=== PATIENT | female | born 2000 | race Caucasian/White ===

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

== ENCOUNTER 2021-04-27 12:44 | Emergency (ER) | payer BC, SELFPAY ==
[2021-04-27 12:50] VITALS: BP 132/72; PULSE 89; RESP 20; TEMP 36.7; O2SAT 99; BMI 18.2
[2021-04-27 13:29] LABS: UTC Strep Screen (Rapid) Negative (Negative)
--- NOTE | 2021-04-27 14:09 | HMH.EDUTC ---
[facility] [place] Disposition Clinical Impression: Viral syndrome, Bronchitis Pharyngitis Qualifiers: Pharyngitis/tonsillitis etiology: unspecified etiology Qualified Code(s): J02.9 - Acute pharyngitis, unspecified Disposition: Home, Self-Care Condition on Discharge: Good Instructions: DI for Strep Throat, DI for Acute Bronchitis, DI for COVID-19 (Suspected or Confirmed ), Preventing the Spread of Coronavirus Discharge Instructions Additional Instructions: Drink plenty of fluids. Take tylenol or ibuprofen for pain or fever. Take the medications as directed. Follow up with your regular doctor. GO TO THE ER FOR ANY WORSENING SYMPTOMS Quarantine until you know the results of your covid-19 test. If it is positive, the health department should call you and give you further instructions about your length of Quarantine and other things. Notify your school or workplace of your results and follow their instructions regarding return to work/school. The cough medication (Bromfed dm) may make you drowsy, so don't drive or operate heavy machinery after taking it. Prescriptions: Brompheniramine/Pseudoephed/Dm [Bromfed Dm Cough Syrup] 5 ml PO Q6HP PRN #240 ml PRN Reason: Cough Transmission Status: Received by [facility] Promethazine HCl 12.5 mg PO Q6HP PRN #20 tab PRN Reason: Nausea Transmission Status: Received by [facility] predniSONE [Deltasone 10mg tablet] 10 mg PO BID 3 Days #6 tab Transmission Status: Received by [facility] Azithromycin [Z-Fernando 250mg Tab*] 250 mg PO UD DOSE PK #6 tab Transmission Status: Received by [facility] Referrals: Nell Gomez APRN [Primary Care Provider] - Forms: Work/School Release Time of Disposition: 14:21 Medical Decision Making - Medical Records Medical records reviewed: No: I reviewed the patient's medical records. - Aquilino Inquiry Pt receiving controlled substance: No Vital Signs: 04/27/21 12:50 04/27/21 14:20 Temperature 98.1 F 98.1 F Temperature Source Oral Pulse Rate 89 Pulse Rate [Right Brachial] 89 Respiratory Rate 20 20 Blood Pressure 132/72 Blood Pressure [Right Arm] 132/72 Blood Pressure Mean [Right Arm] 92 Blood Pressure Source [Right Arm] Automatic Cuff Blood Pressure Position [Right Arm] Sitting 02 Sat by Pulse Oximetry 99 Oxygen Delivery Method Room Air - Lab Data Lab results reviewed: Yes: I reviewed the patient's lab results. Lab Results 04/27/21 12:59: Chlamy pneumoniae PCR Not detected, Adenovirus (PCR) Not detected, B. pertussis DNA (PCR) Not detected, Coronavirus OC43 (PCR) Not detected, Coronavirus HKU1 (PCR) Not detected, Coronavirus 229E (PCR) Not detected, SARS-CoV-2 (PCR) Not detected, Coronavirus NL63 (PCR) Not detected, Human Metapneumovir PCR Not detected, Influenza A (H1) PCR Not detected, Influ A (H1N1/09) PCR Not detected, Influenza A (H3) PCR Not detected, Influenza Type A (PCR) Not detected, Influenza Type B (PCR) Not detected, M. pneumoniae (PCR) Not detected, Parainfluenza 1 (PCR) Not detected, Parainfluenza 2 (PCR) Not detected, Parainfluenza 3 (PCR) Not detected, Parainfluenza 4 (PCR) Not detected, RSV (PCR) Not detected, Entero/Rhino (PCR) Detected A 04/27/21 13:18: Strep Scn Rapid Clinic Negative Orders (Tests/Meds): ORDERS Category Date Time Status Strep Screen Confirmation Stat Micro 04/27/21 13:18 Received [facility] [place] HPI - General Stated complaint: covid and strep test w/ symptoms Time Seen by Provider: 04/27/21 14:09 Mode of Arrival: Ambulatory Source of Information: Patient Limitations: No Limitations Description of Symptoms (Recalled from Triage Doc. by RN): PATIENT C/O RUNNY NOSE, NAUSEA, COUGH, SORE THROAT, CHILLS, AND EARS POPPING SINCE FRIDAY HEENT Symptoms (Recalled from RN notes): Yes Resp Symptoms (Recalled from RN notes): No Skin Symptoms (Recalled from RN notes): No MS Symptoms (Recalled from RN notes): No Functional Status (Recall
[2021-04-27 14:20] VITALS: BP 132/72; PULSE 89; RESP 20; TEMP 36.7; O2SAT 99
[2021-04-27 14:34] LABS: Adenovirus,PCR Not Detected (NotDetected); Bordetella Pertussis Not Detected (NotDetected); Chlamydophila Pneumoniae, PCR Not Detected (NotDetected); Coronavirus 19, PCR Not Detected (NotDetected); Coronavirus 229E Not Detected (NotDetected); Coronavirus NL63 Not Detected (NotDetected); Coronavirus OC43 Not Detected (NotDetected); Coronovirus HKU1,PCR Not Detected (NotDetected); Human Metapneumovirus Not Detected (NotDetected); Influenza A, PCR Not Detected (NotDetected); Influenza AH1, 2009 Not Detected (NotDetected); Influenza AH1, PCR Not Detected (NotDetected); Influenza AH3,PCR Not Detected (NotDetected); Influenza B, PCR Not Detected (NotDetected); Mycoplasma Pneumoniae, PCR Not Detected (NotDetected); Parainfluenza 1, PCR Not Detected (NotDetected); Parainfluenza 2, PCR Not Detected (NotDetected); Parainfluenza 3, PCR Not Detected (NotDetected); Parainfluenza 4, PCR Not Detected (NotDetected); Respiratory Syncytial Virus Not Detected (NotDetected)
[2021-04-27 15:56] LABS: Rhinovirus/Enterovirus Detected (NotDetected)
== END 2021-04-27 14:26 | disposition home or self-care (01) ==
PROVIDERS: Emergency Provider Nurse Practitioner Family; PCP Nurse Practitioner
DX: J02.9 Acute pharyngitis, unspecified (principal); Z20.822 Contact with and (suspected) exposure to COVID-19
CPT/HCPCS: 87581; 87632; 87798; 87880; 99203; C9803; G0463; U0003; U0005

== ENCOUNTER 2021-05-10 17:44 | Emergency (ER) | payer BC, SELFPAY ==
[2021-05-10 17:45] VITALS: BP 119/78; PULSE 73; RESP 16; TEMP 37; O2SAT 98; BMI 18.2
--- NOTE | 2021-05-10 17:52 | HMH.EDGENADL ---
ED Disposition Clinical Impression: Superior mesenteric artery syndrome Disposition: Home, Self-Care Condition on Discharge: Fair Instructions: DI for Acute Abdominal Pain Additional Instructions: You should try to gain some weight back, that is the initial recommended treatment for superior mesenteric artery syndrome. See your physician as soon as possible for further evaluation. Return immediately if worsening abdominal pain, abdominal distention, vomiting, unable to hold down liquids or solids, or development of any other new symptoms such as shortness of breath, fever, vomiting of blood. Referrals: Nell Gomez APRN [Primary Care Provider] - Forms: Work/School Release - Critical Care Critical Care Time: No Attestation: On 05/10/21, the high probability of a clinically significant, sudden or life threatening deterioration of the following system(s) required my full and direct attention, intervention and personal management. The time I documented below is in addition to time spent performing reported procedures but includes the following listed in this critical care notation. Medical Decision Making - Aquilino Inquiry Pt receiving controlled substance: Yes Aquilino was queried for this patient: Yes Risks and benefits of using a controlled substance: were not discussed with pt by me Vital Signs: 05/10/21 17:45 Temperature 98.6 F Temperature Source Oral Pulse Rate [Right] 73 Respiratory Rate 16 Blood Pressure [Right Arm] 119/78 Blood Pressure Mean [Right Arm] 91 Blood Pressure Source [Right Arm] Automatic Cuff Blood Pressure Position [Right Arm] Sitting 02 Sat by Pulse Oximetry 98 Oxygen Delivery Method Room Air - Lab Data Lab Results 05/10/21 17:55: WBC 8.0, RBC 4.67, Hgb 13.5, Hct 40.6, MCV 87.1, MCH 29.0, MCHC 33.3, RDW 12.9, Plt Count 337, MPV 9.0, Neut % (Auto) 59.5, Lymph % (Auto) 32.1, Andrews % (Auto) 4.6, Eos % (Auto) 3.0, Baso % (Auto) 0.9, Neut # (Auto) 4.8, Lymph # (Auto) 2.6, Andrews # (Auto) 0.4, Eos # (Auto) 0.2, Baso # (Auto) 0.1 05/10/21 17:55: Sodium 142, Potassium 4.2, Chloride 108 H, Carbon Dioxide 25, Anion Gap 13.2, BUN 13, Creatinine 0.70, Estimated Creat Clear 111, Estimated GFR 108, Est GFR ( Amer) 130, Glucose 98, Calcium 9.7, Total Bilirubin 0.3, AST 25, ALT 17, Alkaline Phosphatase 60, Total Protein 7.7, Albumin 4.9, Globulin 2.8, Albumin/Globulin Ratio 1.8, Lipase 216 05/10/21 17:55: Serum HCG, Qual Negative Result diagrams: 05/10/21 17:55 05/10/21 17:55 Orders (Tests/Meds): ED MEDICATIONS Discontinued Medications Generic Name Dose Route Start Last Admin Trade Name Freq PRN Reason Stop Dose Admin Iopamidol 75 ml 05/10/21 18:45 05/10/21 18:46 Iopamidol-370 (76%);100ml Bottle IV 05/10/21 18:46 75 ml ONCE ONE Administration Morphine Sulfate 4 mg 05/10/21 18:01 05/10/21 18:12 Morphine 4mg/Ml Syringe IV 05/10/21 18:02 4 mg ONCE ONE Administration Morphine Sulfate 4 mg 05/10/21 20:11 05/10/21 20:13 Morphine 4mg/Ml Syringe IV 05/10/21 20:12 4 mg ONCE ONE Administration Ondansetron HCl 4 mg 05/10/21 18:01 05/10/21 18:12 Ondansetron 4mg/2ml Vial IV 05/10/21 18:02 4 mg ONCE ONE Administration Sodium Chloride 1,000 ml 05/10/21 18:01 05/10/21 18:12 Sodium Chloride 0.9% 1000ml Bag IV 05/10/21 18:02 1,000 ml BOLUS ONE Administration ORDERS Category Date Time Status Urinalysis and Microscopic Stat Lab 05/10/21 18:00 Ordered - CT Data CT Scan: Abdomen, Pelvis Time Received: 20:[address] Reviewed: Yes: I have viewed the radiologist's interpretation - Physician Consults Physician Consulted: Mohan Time: 20:05 Reason -: Surgical Eval/Care Comment/Response: Recommends consultation with vascular surgeon. Likely treatment will be regaining weight. Does not feel patient needs any acute treatment from a general surgery perspective. Additional Consult: [facility] transfer physician Time:
--- NOTE | 2021-05-10 18:00 | CT_ITS ---
PROCEDURE INFORMATION: Exam: CT Abdomen And Pelvis With Contrast Exam date and time: 05/10/2021 6:00 PM Age: 20 years old Clinical indication: Nausea and other: Abd pain; Additional info: Abdominal pain TECHNIQUE: Imaging protocol: Computed tomography of the abdomen and pelvis with contrast. Radiation optimization: All CT scans at this facility use at least one of these dose optimization techniques: automated exposure control; mA and/or kV adjustment per patient size (includes targeted exams where dose is matched to clinical indication); or iterative reconstruction. Contrast material: ISOVUE; Contrast volume: 75 ml; Contrast route: IV; COMPARISON: CR XR LUMBAR SPINE 2-3V 11/03/2020 9:55 AM FINDINGS: Liver: Normal. No mass. Gallbladder and bile ducts: Normal. No calcified stones. No ductal dilation. Pancreas: Normal. No ductal dilation. Spleen: Normal. No splenomegaly. Adrenal glands: Normal. No mass. Kidneys and ureters: Normal. No hydronephrosis. Stomach and bowel: Mildly dilated stomach and proximal duodenum with tapering seen in the 3rd portion of the duodenum. Aortomesenteric angle is approximately 22 degrees and the aortomesenteric distance is 6 mm. No mucosal thickening. Appendix: No evidence of appendicitis. Intraperitoneal space: Unremarkable. No free air. No significant fluid collection. Vasculature: Unremarkable. No abdominal aortic aneurysm. Lymph nodes: Unremarkable. No enlarged lymph nodes. Urinary bladder: Unremarkable as visualized. Reproductive: Unremarkable as visualized. Bones/joints: Unremarkable. No acute fracture. Soft tissues: Unremarkable. 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
[2021-05-10 18:10] LABS: Basophils # 0.1 K/mm3 (0-0.2); Basophils % 0.9 % (0.1-2.0); Eosinophils # 0.2 K/mm3 (0.0-0.4); Hematocrit 40.6 % (37.0-47.0); Hemoglobin 13.5 g/dL (12.2-16.2); Lymphocytes # 2.6 K/mm3 (0.7-4.5); Lymphocytes % 32.1 % (10-50); Mean Corpuscular HGB Conc 33.3 g/dL (31.8-35.4); Mean Corpuscular Volume 87.1 fl (81-99); Monocytes # 0.4 K/mm3 (0.1-1.0); Monocytes % 4.6 % (1.7-9.3); Neutrophils # 4.8 K/mm3 (1.8-7.8); Neutrophils % 59.5 % (37.0-80.0); Platelet Count 337 K/mm3 (142-424); Red Blood Count 4.67 M/mm3 (4.20-5.40); Red Cell Distribution Width 12.9 % (11.5-17.5)
[2021-05-10 18:12] LABS: Chloride 108 mmol/L (98-107); Potassium 4.2 mmoL/L (3.5-5.1); Sodium 142 mmol/L (136-145)
[2021-05-10 18:15] LABS: Alanine Aminotransferase 17 U/L (12-78); Albumin Level 4.9 g/dl (3.5-5.0); Albumin/Globulin Ratio 1.8 (1.1-1.8); Alkaline Phosphatase 60 U/L (38-126); Anion Gap 13.2 mEq/L (5-15); Aspartate Amino Transferase 25 U/L (14-36); Bilirubin,Total 0.3 mg/dl (0.2-1.3); Blood Urea Nitrogen 13 mg/dl (7-17); Calcium 9.7 mg/dl (8.4-10.2); Carbon Dioxide 25 mmol/L (22.0-30.0); Creatinine Clearance Estimated 111 mL/min (50-200); Estimated Glomerular Filt Rate 108 ml/min (>60); GFR (African American) 130 ML/MIN (>60); Globulin 2.8 g/dL (1.3-3.2); Glucose 98 mg/dl (74-100); Lipase 216 U/L (23-300); Total Protein,Serum 7.7 g/dl (6.3-8.2)
[2021-05-10 18:27] LABS: HCG Qualitative, Serum Negative (Negative)
--- NOTE | 2021-05-10 18:32 | PC.NURSE ---
Spoke to pt to see if she could give me a UA, and she stated that she urinated before she came here. She is unable to urinate at this time. Will continue to monitor pt.
--- NOTE | 2021-05-10 18:33 | PC.NURSE ---
Pt is going to CT.
[2021-05-10 21:00] VITALS: BP 119/78; PULSE 73; RESP 16; TEMP 37
== END 2021-05-10 21:04 | disposition home or self-care (01) ==
PROVIDERS: Emergency Provider Emergency Medicine; PCP Nurse Practitioner
DX: K55.1 Chronic vascular disorders of intestine (principal); R10.12 Left upper quadrant pain
CPT/HCPCS: 74177; 80053; 83690; 84703; 85025; 99283; J2405; Q9967

== ENCOUNTER 2021-05-12 17:55 | Emergency (ER) | payer BC, SELFPAY ==
[2021-05-12] VITALS (9 sets, daily range): BP systolic 91–112; BP diastolic 41–62; PULSE 54–118; RESP 15–18; TEMP 36.9–37.1; O2SAT 98–100; BMI 17.9
--- NOTE | 2021-05-12 18:39 | PC.NURSE ---
pt states unable to urinate at this time
[2021-05-12 18:55] LABS: Basophils # 0.1 K/mm3 (0-0.2); Basophils % 0.8 % (0.1-2.0); Eosinophils # 0.3 K/mm3 (0.0-0.4); Eosinophils % 3.5 % (0.1-12.0); Lymphocytes # 2.1 K/mm3 (0.7-4.5); Lymphocytes % 28.1 % (10-50); Mean Corpuscular HGB Conc 32.4 g/dL (31.8-35.4); Mean Corpuscular Hemoglobin 29.2 pg (27.0-31.2); Mean Corpuscular Volume 90.2 fl (81-99); Mean Platelet Volume 9.4 fl (7.4-10.4); Monocytes # 0.3 K/mm3 (0.1-1.0); Monocytes % 3.8 % (1.7-9.3); Neutrophils # 4.7 K/mm3 (1.8-7.8); Neutrophils % 63.9 % (37.0-80.0); Platelet Count 246 K/mm3 (142-424); Red Cell Distribution Width 13.4 % (11.5-17.5); White Blood Count 7.3 K/mm3 (4.5-13.0)
[2021-05-12 19:00] LABS: Chloride 110 mmol/L (98-107); Sodium 143 mmol/L (136-145)
[2021-05-12 19:01] LABS: Potassium 3.9 mmoL/L (3.5-5.1)
[2021-05-12 19:03] LABS: Alanine Aminotransferase 14 U/L (12-78); Alkaline Phosphatase 50 U/L (38-126); Amylase 65 U/L (30-110); Anion Gap 11.9 mEq/L (5-15); Aspartate Amino Transferase 23 U/L (14-36); Bilirubin,Total 0.2 mg/dl (0.2-1.3); Blood Urea Nitrogen 10 mg/dl (7-17); Calcium 9.2 mg/dl (8.4-10.2); Carbon Dioxide 25 mmol/L (22.0-30.0); Creatinine Clearance Estimated 127 mL/min (50-200); Estimated Glomerular Filt Rate 129 ml/min (>60); GFR (African American) 156 ML/MIN (>60); Glucose 84 mg/dl (74-100)
[2021-05-12 19:04] LABS: Albumin/Globulin Ratio 1.7 (1.1-1.8); Globulin 2.4 g/dL (1.3-3.2); Lipase 109 U/L (23-300); Total Protein,Serum 6.4 g/dl (6.3-8.2)
[2021-05-12 19:10] LABS: C-Reactive Protein < 0.3 mg/L (0-4)
[2021-05-12 19:56] LABS: Erythrocyte Sedimentation Rate 14 mm/hr (0-20)
--- NOTE | 2021-05-12 19:56 | PC.NURSE ---
pt was able to urinate but did not collect a sample.
--- NOTE | 2021-05-12 20:14 | HMH.EDGENADL ---
ED Disposition Clinical Impression: Abdominal pain Qualifiers: Abdominal location: upper abdomen, unspecified Qualified Code(s): R10.10 - Upper abdominal pain, unspecified Disposition: Home, Self-Care Condition on Discharge: Fair Instructions: DI for Acute Abdominal Pain Additional Instructions: You have been evaluated for abdominal pain. 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 Please try to increase your caloric intake. Take medications as needed. It is very important that you follow-up with vascular surgery, you may eventually need to have surgery if you develop a bowel blockage or if your symptoms get worse. Return to the emergency department at once for any new or worsening abdominal pain, vomiting, other concerns. Referrals: Jenna Gomez PA [Primary Care Provider] - Forms: Work/School Release Time of Disposition: 22:58 - Critical Care Critical Care Time: No Attestation: On 05/12/21, the high probability of a clinically significant, sudden or life threatening deterioration of the following system(s) required my full and direct attention, intervention and personal management. The time I documented below is in addition to time spent performing reported procedures but includes the following listed in this critical care notation. Medical Decision Making - Medical Records Medical records reviewed: Yes: I reviewed the patient's medical records. - [place] Inquiry Pt receiving controlled substance: No Vital Signs: 05/12/21 18:11 05/12/21 18:30 05/12/21 19:00 Temperature 98.4 F Temperature Source Oral Pulse Rate 62 64 Pulse Rate [Left Radial] 118 H Respiratory Rate 18 15 Blood Pressure 98/62 L 98/42 L Blood Pressure [Right Arm] 112/55 L Blood Pressure Mean 60 63 Blood Pressure Mean [Right Arm] 74 Blood Pressure Source [Right Arm] Automatic Cuff Blood Pressure Position [Right Arm] Sitting 02 Sat by Pulse Oximetry 99 98 98 Oxygen Delivery Method Room Air 05/12/21 19:30 05/12/21 21:06 05/12/21 21:31 Temperature Temperature Source Pulse Rate 54 L 71 58 L Pulse Rate [Left Radial] Respiratory Rate Blood Pressure 92/41 L 96/58 L 99/62 L Blood Pressure [Right Arm] Blood Pressure Mean 53 70 73 Blood Pressure Mean [Right Arm] Blood Pressure Source [Right Arm] Blood Pressure Position [Right Arm] 02 Sat by Pulse Oximetry 98 100 99 Oxygen Delivery Method 05/12/21 22:00 05/12/21 22:30 05/12/21 23:20 Temperature 98.7 F Temperature Source Oral Pulse Rate 55 L 68 73 Pulse Rate [Left Radial] Respiratory Rate 16 Blood Pressure 94/56 L 91/52 L 99/62 L Blood Pressure [Right Arm] Blood Pressure Mean 66 65 Blood Pressure Mean [Right Arm] Blood Pressure Source [Right Arm] Blood Pressure Position [Right Arm] 02 Sat by Pulse Oximetry 98 100 Oxygen Delivery Method Room Air - Lab Data Lab Results 05/12/21 18:45: WBC 7.3, RBC 4.10 L, Hgb 12.0 L, Hct 37.0, MCV 90.2, MCH 29.2, MCHC 32.4, RDW 13.4, Plt Count 246 D, MPV 9.4, Neut % (Auto) 63.9, Lymph % (Auto) 28.1, [facility] % (Auto) 3.8, Eos % (Auto) 3.5, Baso % (Auto) 0.8, Neut # (Auto) 4.7, Lymph # (Auto) 2.1, [facility] # (Auto) 0.3, Eos # (Auto) 0.3, Baso # (Auto) 0.1 05/12/21 18:45: Sodium 143, Potassium 3.9, Chloride 110 H, Carbon Dioxide 25, Anion Gap 11.9, BUN 10, Creatinine 0.60, Estimated Creat Clear 127, Estimated GFR 129, Est GFR ( Amer) 156, Glucose 84, Calcium 9.2, Total Bilirubin 0.2, AST 23, ALT 14, Alkaline Phosphatase 50, C-Reactive Protein < 0.3, Total Protein 6.4, Albumin 4.0, Globulin 2.4, Albumin/Globulin Ratio 1.7, Amylase 65, Lipase 109 05/12/21 18:45: ESR 14 05/12/21 20:40: Lactate 0.9 Result diagrams: 05/12/21 18:45 05/12/21 18:45 Orders (Tests/Meds): ED MEDICATIONS Discontinued Medications Generic Name Dose Route Start Last Admin Trade Name Freq PRN Reason Stop Dose Admin Diphenhydramine HCl 12.5 mg 05/12/21 19:58 05/12/21 21:01 Diphenhydramine 50mg/Ml
--- NOTE | 2021-05-12 20:25 | PC.NURSE ---
pt continues to state she cannot void.
[2021-05-12 21:13] LABS: Lactic Acid 0.9 mmol/L (0.7-2.1)
--- NOTE | 2021-05-12 22:13 | PC.NURSE ---
Patient continues to be resting,laying in bed. no complaints offered.
--- NOTE | 2021-05-12 22:30 | PC.NURSE ---
pt resting at this time. no evidence of vomiting or abd discomfort noted. md aware. wants to try a PO challenge to ensure patient can keep solids and liquids down
--- NOTE | 2021-05-12 23:12 | PC.NURSE ---
patient requested nursing to update her mom on discharge plan, states ok to bring back to room. allowed mom in room with patient at this time. pt consumed most of her soda without incident and ate some crackers.
--- NOTE | 2021-05-12 23:25 | PC.NURSE ---
md called to bedside because the mom had been allowed to come back to be updated by md. the mom immediately berated the physician for her daughter having to present for a second time to the hospital with an ongoing disease process. md was extremely politely and the mother insisted on speaking louder to the point of yelling stating that i was in this hospital twice for covid and I wasn't even treated like a human here so i know how you are treating my daughter . Patient was very pleasant with staff, stated she felt so much better and that she was ready to go home. The mom interjected that we had no business giving her medications (we didn't give any sedating meds) that would cause her not to comprehend what we were telling her and she was informed that didn't happen. We simply were allowing the mom to come back to get the update at the daughter's request, but when the mother put her hand in the doctor's face, the doctor turned and walked away. supervisor lump room was notified and came down to Ed,however they left prior to this. Pt ambulated out of facility without incident, carrying her soda that she was given.
== END 2021-05-12 23:26 | disposition home or self-care (01) ==
PROVIDERS: Emergency Medicine; Emergency Provider Emergency Medicine; PCP Physician Assistant
DX: K55.1 Chronic vascular disorders of intestine (principal); R11.0 Nausea
CPT/HCPCS: 36415; 80053; 82150; 83605; 83690; 85025; 85651; 86140; 99282

== ENCOUNTER 2022-06-09 13:13 | Emergency (ER) | payer BC, SELFPAY ==
--- NOTE | 2022-06-09 15:00 | EXP.UTC ---
Discharge Plan Disposition Patient Disposition: Home, Self-Care Condition: Good Prescriptions Prescriptions: New phenazopyridine [Pyridium] 200 mg tablet 200 mg PO Q8H 2 Days Qty: 6 0RF ciprofloxacin HCl [Cipro] 500 mg tablet 500 mg PO BID 7 Days Qty: 14 0RF ondansetron 4 mg Tablet,Disintegrating 4 mg PO Q8H PRN (Reason: Nausea) Qty: 12 0RF No Action paroxetine HCl [Paxil] 20 mg tablet 20 mg PO DAILY hydroxyzine HCl 25 mg tablet 25 mg PO TID PRN amitriptyline 25 mg tablet 25 mg PO HS dicyclomine 20 mg tablet 20 mg PO BID Referrals Follow up/Referrals: Nell Gomez APRN [Primary Care Provider] - See instructions Activity Restrictions/Add. Instructions Additional Instructions/Restrictions: Drink plenty of fluids. Take tylenol or ibuprofen for pain or fever. Take the medications as directed. Follow up with your regular doctor. GO TO THE ER FOR ANY WORSENING SYMPTOMS The pyridium will make your urine turn orange, this is an expected side effect. It will stain your clothes if it comes into contact with them. We will culture the urine. That will tell what bacteria is causing your infection and which antibiotics will treat it best. Sometimes the first antibiotic we prescribe turns out to not work against different bacteria. So, make sure you follow up within 3 days if you are not getting better. Clinical Impressions Clinical Impression: UTI (urinary tract infection) Stand Alone Forms Stand Alone Forms: Work/School Release Instructions Patient Instructions: Urinary Tract Infection, Urine Culture, DI for Urinary Tract Infection (UTI), Phenazopyridine Discharge ED Provider: Gwyn Wadsworth [facility] General Stated complaint: Vomiting, right side pain Time Seen by Provider: 06/09/22 15:00 History of Present Illness Provider Complaint: She states that for the past 2 days he has had urinary frequency and right lower back pain. Related Data Home Medications Medication Instructions Recorded Confirmed amitriptyline 25 mg tablet 25 mg PO HS 03/26/22 03/26/22 dicyclomine 20 mg tablet 20 mg PO BID 03/26/22 03/26/22 hydroxyzine HCl 25 mg tablet 25 mg PO TID PRN 03/26/22 03/26/22 paroxetine HCl 20 mg tablet (Paxil) 20 mg PO DAILY 03/26/22 03/26/22 Previous Rx's Medication Instructions Recorded ciprofloxacin HCl 500 mg tablet 500 mg PO BID 7 days #14 tabs 06/09/22 (Cipro) ondansetron 4 mg disintegrating 4 mg PO Q8H PRN Nausea #12 tabs 06/09/22 tablet phenazopyridine 200 mg tablet 200 mg PO Q8H 2 days #6 tabs 06/09/22 (Pyridium) Allergies Allergy/AdvReac Type Severity Reaction Status Date / Time No Known Allergies Allergy Verified 03/26/22 15:56 PFSH PFSH Medical History Hematuria Hypertension Social History Smoking Status: Current every day smoker second hand exposure: Yes alcohol intake: current substance use type: denies use current occupational status: other Travel in the last 8 weeks: None ROS Obtained: Yes All systems reviewed & no additional complaints except as documented Constitutional Constitutional: Reports system reviewed and no additional complaints, except as documented, Denies chills and Denies fever(s) Eyes Eyes: Denies eye discharge ENT Ears, Nose, Mouth, and Throat: Denies dysphagia, Denies sore throat and Denies throat swelling Cardiovascular Cardiovascular: Denies chest pain and Denies dyspnea Respiratory Respiratory: Denies chest congestion, Denies cough and Denies dyspnea Gastrointestinal Gastrointestingal: Denies abdominal pain, constipation, diarrhea, dysphagia, nausea or vomiting Genitourinary Female Genitourinary: Reports as per HPI, Reports dysuria, Reports sexual dysfunction, Reports urinary frequency, Denies urinary incontinence and Reports urinary hesitancy Musculoskeletal Muscu
[2022-06-09 15:14] VITALS: BP 133/71; PULSE 90; RESP 15; TEMP 37.1; O2SAT 99; BMI 19.1
[2022-06-09 15:23] LABS: Apearance,Urine Cloudy (Clear); Bilirubin,Urine 1+ (Negative); Blood, Urine 3+ (Negative); Color,Urine Amber (Yellow); Glucose,Urine (UA) Negative (Negative); Ketones,Urine Negative (Negative); PH,Urine 5.5 (5.0-8.5); Protein,Urine 1+ (Negative); Specific Gravity, Urine >= 1.030 (1.005-1.030); UTC Leukocyte Esterase,Urine Negative (Negative); UTC Nitrate,Urine Negative (Negative); Urobilinogen,Urine 0.2 EU/dl (0.2)
[2022-06-09 15:27] VITALS: BP 133/71; PULSE 90; RESP 15; TEMP 37.1
== END 2022-06-09 15:33 | disposition home or self-care (01) ==
PROVIDERS: Emergency Provider Nurse Practitioner Family; PCP Nurse Practitioner
DX: N39.0 Urinary tract infection, site not specified (principal); M54.50 Low back pain, unspecified; R11.0 Nausea; F17.210 Nicotine dependence, cigarettes, uncomplicated; Z79.899 Other long term (current) drug therapy
CPT/HCPCS: 81003; 87086; 99213; G0463

== ENCOUNTER 2022-12-01 19:40 | Emergency (ER) | payer BC, SELFPAY ==
[2022-12-01 19:45] VITALS: BP 122/77; PULSE 87; RESP 18; TEMP 36.9; O2SAT 100; BMI 20.5
--- NOTE | 2022-12-01 19:56 | EXP.UTC ---
Discharge Plan Disposition Patient Disposition: Home, Self-Care Condition: Good Prescriptions Prescriptions: No Action hydroxyzine HCl 25 mg tablet 25 mg PO TID PRN (Reason: Anxiety) Vraylar 1.5 mg capsule 1.5 mg PO DAILY Label Comments: TAKE 1 CAPSULE BY MOUTH ONCE DAILY Referrals Follow up/Referrals: Nell Gomez APRN [Primary Care Provider] - See instructions Activity Restrictions/Add. Instructions Additional Instructions/Restrictions: Make sure to follow up with your Family Doctor for further work up and evaluation Make sure that you are getting adequate sleep and eating properly Return if needed Straight to ER if any life threatening symptoms Clinical Impressions Clinical Impression: Generalized body aches Stand Alone Forms Stand Alone Forms: Work/School Release Instructions Patient Instructions: DI for Fatigue, DI for Nausea -- Adult Discharge ED Provider: Mitzi Bagley [facility] General Stated complaint: body aches,weak Mode of Arrival: Ambulatory Source of Information: Patient Limitations: No Limitations Time Seen by Provider: 12/01/22 19:56 Description of Symptoms (Recalled from Triage Doc. by RN): PATIENT REPORTS FEELING WEIGHED DOWN AND NOT FEELING WELL X 3 DAYS HEENT Symptoms (Recalled from RN notes): No Resp Symptoms (Recalled from RN notes): No Skin Symptoms (Recalled from RN notes): No MS Symptoms (Recalled from RN notes): No Functional Status (Recalled from RN notes): WNL History of Present Illness Provider Complaint: Patient states that for the last 3 days she has been feeling weighted down tired achy and fatigued States that she was feeling a little nauseous but no vomiting Denies fever, denies chills, denies sore throat wasnt able to work today needing a work note Related Data Home Medications Medication Instructions Recorded Confirmed hydroxyzine HCl 25 mg tablet 25 mg PO TID PRN Anxiety 03/26/22 12/01/22 cariprazine 1.5 mg capsule 1.5 mg PO DAILY Depression 12/01/22 12/01/22 (Vraylar) Allergies Allergy/AdvReac Type Severity Reaction Status Date / Time No Known Allergies Allergy Verified 03/26/22 15:56 Worker's Comp Is this a Worker's Comp case?: No [facility] Disclaimer: The information contained in this section may have been updated after the patient was seen, as this information can be updated by other users. Medical History Hematuria Hypertension Social History Smoking Status: Current every day smoker second hand exposure: Yes alcohol intake: current substance use type: denies use current occupational status: other Travel in the last 8 weeks: None ROS Obtained: Yes All systems reviewed & no additional complaints except as documented and Yes Systems reviewed as appropriate & no additional complaints except as documented Constitutional Constitutional: Reports system reviewed and no additional complaints, except as documented, Reports as per HPI, Reports body ache, Denies chills, Reports fatigue, Denies fever(s) and Denies headache(s) ENT Ears, Nose, Mouth, and Throat: Reports system reviewed and no additional complaints, except as documented, Reports as per HPI, Denies headache(s), Denies nasal congestion, Denies nasal discharge, Denies sinus pain, Denies sinus pressure and Denies sore throat Cardiovascular Cardiovascular: Reports system reviewed and no additional complaints, except as documented and Reports as per HPI Respiratory Respiratory: Reports system reviewed and no additional complaints, except as documented, Reports as per HPI, Denies shortness of breath, Denies chest congestion and Denies cough Gastrointestinal Gastrointestingal: Reports system reviewed and no additional complaints, except as documented, as per HPI and nausea; Denies abdominal pain, cramping, diarrhea or vomiting Neurologic Neurologic: Denies
[2022-12-01 20:01] LABS: UTC Influenza A Antigen Negative (Negative); UTC Influenza B Antigen Negative (Negative)
[2022-12-01 20:01] LABS: UTC Pregnancy Test, Urine Negative (Negative)
[2022-12-01 20:05] VITALS: BP 122/77; PULSE 87; RESP 18; TEMP 36.9; O2SAT 100
== END 2022-12-01 20:10 | disposition home or self-care (01) ==
PROVIDERS: Emergency Provider Nurse Practitioner; PCP Nurse Practitioner
DX: R53.83 Other fatigue (principal); M79.18 Myalgia, other site; F17.210 Nicotine dependence, cigarettes, uncomplicated; I10 Essential (primary) hypertension; Z20.822 Contact with and (suspected) exposure to COVID-19
CPT/HCPCS: 81025; 87635; 87804; 99212; 99213; C9803; G0463; U0003; U0005

== ENCOUNTER → 2023-06-30 15:01 | Outpatient (CLI) | payer BC, SELFPAY | LOC: RT 15:02 | PROVIDERS: PCP Nurse Practitioner; Visit Provider Internal Medicine | DX: R00.2 Palpitations (principal); R07.9 Chest pain, unspecified; R42 Dizziness and giddiness; R55 Syncope and collapse | CPT/HCPCS: 93270 ==

== ENCOUNTER 2023-08-05 08:19 | Outpatient (CLI) | payer BC, SELFPAY ==
[2023-08-04 13:39] VITALS: BMI 22.5
[2023-08-05 08:48] VITALS: BP 110/72; PULSE 75; RESP 18; TEMP 36.5; O2SAT 100
[2023-08-05 08:56] LABS: Urine Pregnancy, HCG Qual. Negative (Negative)
[2023-08-05] MEDS: IVABRADINE HCL 7.5MG TABLET *IVABRADINE+METOPROLOL REGIMINE 15 MG PO (09:06)
[2023-08-05] MEDS: METOPROLOL TARTRATE 50MG TABLET *IVABRADINE+METOPROLOL REGIMINE 75 MG PO (09:08)
[2023-08-05 10:09] LABS: Anion Gap 12.9 mEq/L (5-15); Blood Urea Nitrogen 12 mg/dl (7-17); Calcium 9.1 mg/dl (8.4-10.2); Carbon Dioxide 22 mmol/L (22.0-30.0); Chloride 109 mmol/L (98-107); Creatinine Clearance Estimated 131 mL/min (50-200); Estimated Glomerular Filt Rate 106 ml/min (>60); GFR (African American) 128 ML/MIN (>60); Glucose 81 mg/dl (74-100); Potassium 3.9 mmoL/L (3.5-5.1); Sodium 140 mmol/L (136-145)
[2023-08-05 10:26] VITALS: BP 99/60; PULSE 51; RESP 17; O2SAT 100
[2023-08-05 10:31] VITALS: BP 101/56; PULSE 60; RESP 16; O2SAT 100
[2023-08-05 10:36] VITALS: BP 92/55; PULSE 56; RESP 17; O2SAT 100
[2023-08-05 10:40] VITALS: BP 96/64; PULSE 56; RESP 17; O2SAT 100
[2023-08-05 10:43] VITALS: BP 132/79; PULSE 62; RESP 17; O2SAT 99
[2023-08-05] MEDS: IOPAMIDOL-370 (76%);100ML BOTTLE 85 ML IV (10:49)
[2023-08-05] MEDS: SODIUM CHLORIDE 0.9% 10ML SYR (RAD ONLY) 10 ML IV (10:49)
[2023-08-05] MEDS: 0.9 % SODIUM CHLORIDE 50 ML VIAL IV (10:49)
== END 2023-08-05 11:04 | disposition home or self-care (01) ==
PROVIDERS: PCP Nurse Practitioner; Visit Provider Internal Medicine
DX: R07.9 Chest pain, unspecified (principal); R00.2 Palpitations; R55 Syncope and collapse; R42 Dizziness and giddiness
CPT/HCPCS: 75571; 75574; 80048; 81025; Q9967

== ENCOUNTER 2023-08-27 14:06 | Outpatient (CLI) | payer BC, SELFPAY ==
--- NOTE | 2023-08-27 14:08 | CA_ITS ---
APPROVED REPORT EXAM: Comprehensive 2D, Doppler, and color-flow Echocardiogram Treatment Specialist: Sherry Wu RVT Ht: 5 ft 7 in Wt: 144lbs BSA: 1.76 BP: 132/73 mmHg Indications: SYNCOPE,TACYCARDIA,PALPS,CP 2D Dimensions LA Volume 38.00 mL LA Volume Index 21.59 mL/m2 (M/F) 16-34 M-Mode Dimensions RVDd 2.14 cm (0.9-2.6) LA Diam 2.98 cm (1.9-4.0) LVDd 4.34 cm (3.5-5.7) LVDs 2.84 cm (3.5-5.7) IVSd 0.86 cm (0.6-1.1) PWd 0.40 cm (0.6-1.1) EF (Teich) 64.00% FS 34.60% EDV (Teich) 84.90 mL TAPSE 1.72 (<1.7) ESV (Teich) 30.60 mL LV Diastology E Decel Time 197 (160-240 msec) E/A Ratio 1.9 Aortic Valve ALEXA Index 1.39 cm2/m2 AoV Peak Keaton. 105.0 (50-130 cm/s) AO Peak GR. 4.40 mmHg AO Mean GR. 2.70 (<5 mmHg) AO VTI 20.7 (18-25 cm) ALEXA (VTI) 2.50 (2.5-4.5 cm2) Mitral Valve MV E Max Keaton. 93.0 (40-130 cm/s) MV A Velocity 50.0 (40-130 cm/s) E/A Ratio 1.85 MV PHT 58.0 ms Pulmonary Valve PV Peak Velocity 101.0 (50-150 cm/s) Tricuspid Valve TR P. Velocity 178.00 cm/s RAP Estimate 10.00 mmHg RVSP 22.70 mmHg Left Ventricle The left ventricle is normal size. The left ventricular systolic function is normal. The left ventricular ejection fraction is within the normal range. There is normal left ventricular wall thickness. There is normal LV segmental wall motion. The left ventricular diastolic function is normal. LVEF is 55%. Right Ventricle The right ventricle is normal size. The right ventricular systolic function is normal. Atria The left atrium size is normal. The right atrium size is normal. There is no Doppler evidence of interatrial shunt. Aortic Valve The aortic valve opens well. There is no aortic valvular stenosis. Trace aortic regurgitation. Mitral Valve The mitral valve is normal in structure. No evidence of mitral valve stenosis. Trace mitral valve regurgitation. Tricuspid Valve The tricuspid valve leaflets are thin and pliable. Trace tricuspid regurgitation. There is insufficient TR jet to estimate RVSP. Pulmonic Valve The pulmonary valve is normal in structure. Trace pulmonic regurgitation. Great Vessels The aortic root is normal in size. The ascending aorta is normal in size. IVC is normal in size and collapses >50% with inspiration. Pericardium There is no pericardial effusion. Other Information Study Quality: Adequate Conclusion Normal biventricular systolic function. No significant valvular stenosis or regurgitation. Electronically signed by : Nai Henriquez MD 08/29/2023 19:15:11
== END 2023-08-27 23:59 ==
LOC: RT 14:08
PROVIDERS: PCP Nurse Practitioner; Visit Provider Internal Medicine
DX: R00.2 Palpitations (principal); R07.9 Chest pain, unspecified; R42 Dizziness and giddiness; R55 Syncope and collapse
CPT/HCPCS: 93306

== ENCOUNTER 2023-12-31 07:38 | Outpatient (CLI) | payer BC, SELFPAY ==
[2023-12-31 07:58] LABS: Basophils # 0.1 K/mm3 (0-0.2); Basophils % 1.2 % (0.1-2.0); Eosinophils # 0.4 K/mm3 (0.0-0.4); Lymphocytes % 33.5 % (10-50); Mean Corpuscular HGB Conc 32.4 g/dL (31.8-35.4); Mean Corpuscular Hemoglobin 28.7 pg (27.0-31.2); Mean Corpuscular Volume 88.6 fl (81-99); Mean Platelet Volume 8.8 fl (7.4-10.4); Monocytes # 0.3 K/mm3 (0.1-1.0); Monocytes % 5.8 % (1.7-9.3); Neutrophils # 3.1 K/mm3 (1.8-7.8); Neutrophils % 53.5 % (37.0-80.0); Platelet Count 273 K/mm3 (142-424); Red Blood Count 4.85 M/mm3 (4.20-5.40); Red Cell Distribution Width 13.8 % (11.5-17.5); White Blood Count 5.8 K/mm3 (4.8-10.8)
[2023-12-31 09:14] LABS: Chloride 106 mmol/L (98-107)
[2023-12-31 09:15] LABS: Potassium 4.2 mmoL/L (3.5-5.1); Sodium 139 mmol/L (136-145)
[2023-12-31 09:17] LABS: Blood Urea Nitrogen 11 mg/dl (7-17); Estimated Glomerular Filt Rate 105 ml/min (>60); GFR (African American) 127 ML/MIN (>60)
[2023-12-31 09:18] LABS: Anion Gap 14.2 mEq/L (5-15); Carbon Dioxide 23 mmol/L (22.0-30.0); Glucose 80 mg/dl (74-100)
[2023-12-31 09:35] LABS: Free T4 (Free Thyroxine) 1.23 ng/dl (0.78-2.19)
[2023-12-31 09:50] LABS: Thyroid Stimulating Hormone 1.15 uIU/mL (0.465-4.68)
[2024-01-02 11:29] LABS: Antinuclear Antibodies, IFA Negative (.)
[2024-01-05 10:13] LABS: Dopamine, Plasma < 30 pg/mL (0-48); Epinephrine, Plasma < 15 pg/mL (0-62); Norepinephrine, Plasma 352 pg/mL (0-874)
== END 2023-12-31 23:59 | disposition home or self-care (01) ==
LOC: LAB 07:39
PROVIDERS: PCP Nurse Practitioner; Visit Provider Internal Medicine
DX: R55 Syncope and collapse (principal); R06.09 Other forms of dyspnea; R42 Dizziness and giddiness; R00.2 Palpitations; R07.9 Chest pain, unspecified
CPT/HCPCS: 36415; 80048; 82384; 82533; 83520; 84439; 84443; 85025; 86038

== ENCOUNTER 2024-01-14 05:29 | Outpatient (CLI) | payer BC, SELFPAY ==
[2024-01-15 08:19] LABS: Sodium, Urine 188 mmol/L (Not Estab.); Sodium, Urine 216 mmol/24 hr (39-258)
== END 2024-01-14 23:59 | disposition home or self-care (01) ==
LOC: LAB.DROPOF 05:31
PROVIDERS: PCP Internal Medicine; Visit Provider Internal Medicine
DX: R55 Syncope and collapse (principal); R06.09 Other forms of dyspnea; R42 Dizziness and giddiness; R00.2 Palpitations; R07.9 Chest pain, unspecified
CPT/HCPCS: 84300

== ENCOUNTER 2024-01-20 12:48 | Outpatient (CLI) | payer BC, SELFPAY ==
--- NOTE | 2024-01-20 12:49 | MR_ITS ---
APPROVED REPORT [employer] Mill Supervisor: CLINICAL INDICATION Palpitations, evaluation for structural heart disease TECHNIQUE Image Acquisition: Cardiac magnetic resonance (CMR) was performed on Siemens Espree MRI 1.5T scanner. Software platform sequences were performed using the Siemens Tricida MR B19 platform. A set of three-plane, low-resolution, large [id number] localizers were initially acquired. Then axial, coronal, sagittal TrueFISP, as well as axial HASTE images, were obtained. These were followed by gated TrueFISP breathold cinematic sequences obtained in the short axis with 8 mm slices and 2 mm gaps, 2-chamber (vertical long axis), 3-chamber, 4-chamber (horizontal long axis). A bolus of contrast was injected intravenously with first-pass sequences obtained in the short axis and four-chamber planes. After approximately 10 minutes, a TI consultant nurse sequence was performed to determine the optimal TI time. Using the optimized TI time, delayed contrast enhancement segmented inversion???recovery TurboFLASH sequences were obtained in the short axis, 2-chamber, 3-chamber, and 4-chamber projections. 2D-velocity phase mapping was performed. Functional parameters were calculated by offline analysis on an independent workstation ([employer], [employer]). Contrast: ProHance??? (Gadoteridol) FINDINGS MORPHOLOGY AND FUNCTION Left ventricle: The left ventricle is normal in size. The indexed left ventricular end-diastolic volume (LVEDVi) is 64 ml/m2 (reference range 57-105 ml/m2 in males, 56-96 ml/m2 in females). Normal left ventricular systolic function is present. There is normal left ventricular wall thickness. There are no regional wall motion abnormalities noted. LVEF is calculated at 63.2 % (reference range 57-77%). Right ventricle: The right ventricle is normal in size. The indexed right ventricular end-diastolic volume (RVEDVi) is 65 ml/m2 (reference range 61-121 ml/m2 in males, 48-112 ml/m2 in females). Low normal right ventricular systolic function is present. RVEF is calculated at 50.0% (reference range 52-72% in males, 51-71% in females). Atria: The left atrium is normal in size. The maximum indexed left atrial volume is 28 ml/m2 (reference range 26-52 ml/m2 in males, 27-53 ml/m2 in females). The right atrium is normal in size. The maximum indexed right atrial volume is 20 ml/m2 (reference range 18-90 ml/m2). Aorta: The diameter of the aortic annulus is normal, measuring 26 mm (coronal view reference range 21-30 mm in males, 19-27 mm in females). The diameter of the aortic sinus is normal, measuring 26 mm (coronal view reference range 25-42 mm in males, 24-36 mm in females). The diameter of the sinotubular junction is normal, measuring 24 mm (coronal view reference range 18-32 mm in males, 18-28 mm in females). The diameters of the ascending and descending thoracic aorta are normal. Main pulmonary artery: The main pulmonary artery diameter is normal. Pericardium: The pericardial thickness is normal. The pericardial thickness measures 2.8 mm (normal < 4.0 mm). There is no pericardial effusion. VALVES The valvular morphologies in the visualized sequences appear normal. There is no significant valvular stenosis or regurgitation of the mitral, aortic, tricuspid, or pulmonic valve noted visually. Systolic anterior motion of the mitral valve is not visualized. Ratio of pulmonary to systemic flow, Qp:Qs ratio = 1.4 (normal < or = 1.2, hemodynamically significant shunt > 1.5), demonstrating no evidence of hemodynamically significant shunt. TISSUE CHARACTERIZATION Resting Perfusion: Normal myocardial blood flow at rest. No evidence of resting hypoperfusion. Myocardial Fibrosis and/or edema: Normal gadolinium kinetics are present. No evidence of late gadolinium enhancement is noted, consistent with absence of myocardial scarring, infarction, or necrosis. T2-weighted imaging demonstrates no evidence of myocardial edema or inflammation. OTHER No other significant findings are noted. However, this exam is focused on the cardiac structure and function. IMPRESSION Normal LV size with normal LV systolic function. LVEDVi= 64 ml/m2 and LVEF= 63.2%. Low-normal RV size with normal RV systolic function. RVEDVi= 65 ml/m2 and RVEF= 50.0%. No atrial enlargement. No CMR evidence of myocardial scarring, infarction, or necrosis. No evidence of myocardial edema or inflammation. Perfusion analysis demonstrates normal blood flow at rest with no evidence of resting hypoperfusion. Ratio of pulmonary to systemic flow, Qp:Qs ratio = 1.4 (normal < or = 1.2, hemodynamically significant shunt > 1.5), demonstrating no evidence of hemodynamically significant shunt. Overall, this CMR is essentially normal and demonstrates normal biventricular systolic function with no CMR findings of structural heart disease. COMPARISON None CRITICAL RESULT None COMMUNICATION Per this written report The findings of this cardiac MR were reviewed, reported, and signed by Bao Henriquez MD (Quality Associate). Conclusion Electronically signed by : Nai Henriquez MD 01/28/2024 23:07:50
[2024-01-20] MEDS: GADOTERIDOL INJ 20ML SYRINGE 15 ML IV (14:19)
[2024-01-20] MEDS: 0.9 % SODIUM CHLORIDE 50 ML VIAL 25 ML IV (14:19)
[2024-01-20] MEDS: SODIUM CHLORIDE 0.9% 10ML SYR (RAD ONLY) 10 ML IV (14:19)
== END 2024-01-20 23:59 | disposition home or self-care (01) ==
LOC: RAD 12:49
PROVIDERS: PCP Nurse Practitioner; Visit Provider Internal Medicine
DX: R00.0 Tachycardia, unspecified (principal); R00.2 Palpitations; R06.09 Other forms of dyspnea; R55 Syncope and collapse; R42 Dizziness and giddiness; R07.9 Chest pain, unspecified
CPT/HCPCS: 75561; A9576

== ENCOUNTER 2024-02-29 08:35 | Emergency (ER) | payer BC, SELFPAY ==
--- NOTE | 2024-02-29 08:39 | XR_ITS ---
PROCEDURE INFORMATION: Exam: XR Right Wrist Exam date and time: 02/29/2024 9:03 AM Age: 23 years old Clinical indication: Injury or trauma; Fall; Blunt trauma (contusions or hematomas); Wrist; Right; Additional info: Pain TECHNIQUE: Imaging protocol: Radiologic exam of the right wrist. Views: 3 or more views. COMPARISON: CR Hand R 02/29/2024 9:02 AM FINDINGS: Bones/joints: Osseous structures are intact. No fracture or malalignment. Visualized joint surfaces are preserved. Soft tissues: Unremarkable. IMPRESSION: Negative exam. No acute bony abnormalities.
--- NOTE | 2024-02-29 08:39 | XR_ITS ---
PROCEDURE INFORMATION: Exam: XR Right Hand Exam date and time: 02/29/2024 9:02 AM Age: 23 years old Clinical indication: Injury or trauma; Fall; Blunt trauma (contusions or hematomas); Hand; Right; Additional info: Pain TECHNIQUE: Imaging protocol: Radiologic exam of the right hand. Views: 3 or more views. COMPARISON: No relevant prior studies available. FINDINGS: Bones/joints: Osseous structures are intact. No fracture or malalignment. Visualized joint surfaces are preserved. Soft tissues: Unremarkable. IMPRESSION: Negative exam. No acute bony abnormalities.
[2024-02-29 08:45] VITALS: BP 124/72; PULSE 90; RESP 18; TEMP 36.6; O2SAT 100; BMI 22.0
--- NOTE | 2024-02-29 09:19 | ED_ITS ---
Discharge Plan Disposition Patient Disposition: Home, Self-Care Condition: Good Prescriptions Prescriptions: New ibuprofen 600 mg tablet 600 mg PO Q6HP PRN (Reason: Mild Pain) Qty: 30 0RF No Action lamotrigine 150 mg tablet PO trazodone 50 mg tablet PO olanzapine 15 mg tablet,disintegrating PO propranolol 20 mg tablet 20 mg PO BID Qty: 60 5RF Referrals Follow up/Referrals: Kj Ny, [Staff Physician] - See instructions Gwyn Wadsworth APRN [Primary Care Provider] - See instructions Activity Restrictions/Add. Instructions Additional Instructions/Restrictions: Rest the extremity, apply ice for 15 minutes as tolerated three or four times per day, Wear the abby wrap for compression, Elevate the extremity as tolerated while you are resting. Take ibuprofen (if you can take this) for pain. I sent in a prescription to your pharmacy. Follow up with Dr. Ny (orthopedics). I put in a referral but you need to call his office and schedule an appointment. Follow up with your regular doctor. GO TO THE ER FOR ANY WORSENING SYMPTOMS Clinical Impressions Clinical Impression: Right wrist sprain, Sprain of hand, right Stand Alone Forms Stand Alone Forms: Work/School Release Instructions Patient Instructions: DI for Wrist Sprain, DI for Hand Injury, How to Apply an Elastic Wrap on Wrist Print Language Print Language: Swedish Discharge ED Provider: Nell Gomez [facility] General Stated complaint: AO fall 02/27 right hand pain swelling Mode of Arrival: Ambulatory Source of Information: Patient Limitations: No Limitations Time Seen by Provider: 02/29/24 09:18 Description of Symptoms (Recalled from Triage Doc. by RN): PATIENT C/O PAIN TO HAND AND WRIST AFTER FALLING YESTERDAY EVENING AND INJURING IT HEENT Symptoms (Recalled from RN notes): No Resp Symptoms (Recalled from RN notes): No Skin Symptoms (Recalled from RN notes): No MS Symptoms (Recalled from RN notes): Yes Functional Status (Recalled from RN notes): WNL Related Data Home Medications ?Medication ?Instructions ?Recorded ?Confirmed lamotrigine 150 mg tablet mg PO 12/29/23 01/28/24 olanzapine 15 mg disintegrating mg PO 12/29/23 01/28/24 tablet trazodone 50 mg tablet mg PO 12/29/23 01/28/24 Previous Rx's ?Medication ?Instructions ?Recorded propranolol 20 mg tablet 20 mg PO BID #60 tabs 01/28/24 ibuprofen 600 mg tablet 600 mg PO Q6HP PRN Mild Pain #30 02/29/24 tabs Allergies Allergy/AdvReac Type Severity Reaction Status Date / Time No Known Allergies Allergy Verified 01/28/24 14:03 Worker's Comp Is this a Worker's Comp case?: No [facility] Disclaimer: The information contained in this section may have been updated after the patient was seen, as this information can be updated by other users. Medical History (Updated 02/29/24 @ 09:41 by Gwyn Wadsworth APRN) Migraine Inappropriate sinus tachycardia Dizziness Syncope Chest pain Palpitations Hematuria Hypertension Surgical History History of esophagogastroduodenoscopy (EGD) History of endometrial ablation Family History Other Family history of cancer Social History Smoking Status: Current every day smoker second hand exposure: Yes alcohol intake: current substance use type: denies use current occupational status: other Travel in the last 8 weeks: None ROS Obtained: Yes All systems reviewed & no additional complaints except as documented Constitutional Constitutional: Denies chills and Denies fever(s) Eyes Eyes: Denies eye discharge ENT Ears, Nose, Mouth, and Throat: Denies dizziness, Denies otalgia and Denies sore throat Cardiovascular Cardiovascular: Denies chest pain Respiratory Respiratory: Denies shortness of breath, Denies chest congestion, Denies cough, Denies stridor and Denies wheezing Gastrointestinal Gastrointestingal: Denies nausea or vomiting Musculoskeletal Musculoskeletal: Reports as per HPI Integumentary/Breasts Skin/Breast: Denies redness, Denies rash and Denies wounds Neurologic Neurologic: Denies dizziness and Denies paresthesias Allergic/Immunologic Allergic/Immunologic: Denies wheezing Physical Exam General General appearance: alert and in no apparent distress Head Head exam: atraumatic, normocephalic and normal inspection Eye Eye exam: Present normal appearance, PERRL and EOMI ENT ENT exam: Present normal exam, normal oropharynx, mucous membranes moist, TM's normal bilaterally and normal external ear exam Neck Neck exam: Present normal inspection, full ROM and trachea midline; Absent meningismus or lymphadenopathy Chest Chest inspection: Present normal inspection and symmetric chest wall rise; Absent tenderness Respiratory Respiratory exam: Present normal lung sounds bilaterally; Absent respiratory distress Cardiovascular Cardiovascular exam: Present regular rate and normal rhythm; Absent JVD Abdominal Exam Abdominal exam: Present soft and normal bowel sounds; Absent distention, tenderness or guarding Extremities Exam Extremities exam: Present normal capillary refill; Absent calf tenderness Expanded Upper Extremity Exam Right: Elbow exam: Present normal inspection and full ROM; Absent tenderness, pain w/ pronation/supination or tenderness over radial head Forearm/Wrist exam: Present normal inspection and full ROM; Absent tenderness, swelling, abrasion, laceration, ecchymosis, deformity, crepitus, dislocation, erythema, tenderness over anatomical snuff box or pain with axial thumb loading Hand exam: Present full ROM and tenderness; Absent swelling, abrasion, laceration, skin avulsion, ecchymosis, deformity, crepitus, dislocation, erythema, amputation, nail avulsion or subungual hematoma Neuromotor exam: Normal wrist extension, thumb opposition, thumb IP flexion, thumb adduction and fingers 2-5 abduction Neurosensory exam: Normal radial nerve, ulnar nerve and median nerve Vascular exam: Normal capillary refill, radial pulse and ulnar pulse Back Exam Back exam: Present normal inspection; Absent tenderness Neurological Exam Neurological exam: Present alert and oriented X3 Psychiatric Psychiatric exam: Present normal affect and normal mood Skin Skin exam: Present warm, dry, intact and normal color Lymphatic Lymphatic Findings: no adenopathy Medical Decision Making Medical Records Medical records reviewed: No I reviewed the patient's medical records. [place] Inquiry Pt receiving controlled substance: No Vital Signs: 02/29/24 08:45 Temperature 97.9 F Temperature Source Oral Pulse Rate [Left Brachial] 90 Respiratory Rate 18 Blood Pressure [Left Arm] 124/72 Blood Pressure Mean [Left Arm] 89 Blood Pressure Source [Left Arm] Automatic Cuff Blood Pressure Position [Left Arm] Sitting 02 Sat by Pulse Oximetry 100 Oxygen Delivery Method Room Air Orders (Tests/Meds): ORDERS Category Date Time Status Wrist XR right minimum 3 views [XR wrist RT min 3V] Exams 02/29/24 08:39 Taken Stat XR hand RT min 3V Stat Exams 02/29/24 08:39 Taken Radiology Data #1: Image(s): Wrist Image Reviewed: Yes I reviewed the patient's radiology image and Yes I have reviewed radiologist's interpretation Preliminary Findings: No Fracture Seen Accession No. : [id number] Patient Name / ID : Lucien Camejo / [id number] Exam Date : 02/29/2024 09:03:57 ( Final ) Study Comment : Sex / Age : F / 23Y Creator : MAEGAN MARTIN Dictator : Insulation Professional : Summer Analyst : MAEGAN MARTIN Approver2 : Report Date : 02/29/2024 10:22:39 My Comment : PROCEDURE INFORMATION: Exam: XR Right Wrist Exam date and time: 02/29/2024 9:03 AM Age: 23 years old Clinical indication: Injury or trauma; Fall; Blunt trauma (contusions or hematomas); Wrist; Right; Additional info: Pain TECHNIQUE: Imaging protocol: Radiologic exam of the right wrist. Views: 3 or more views. COMPARISON: CR Hand R 02/29/2024 9:02 AM FINDINGS: Bones/joints: Osseous structures are intact. No fracture or malalignment. Visualized joint surfaces are preserved. Soft tissues: Unremarkable. IMPRESSION: Negative exam. No acute bony abnormalities. #2: Image(s): Hand Image Reviewed: Yes I reviewed the patient's radiology image and Yes I have reviewed radiologist's interpretation Preliminary Findings: No Fracture Seen Accession No. : [id number] Patient Name / ID : Lucien Camejo / [id number] Exam Date : 02/29/2024 09:02:11 ( Final ) Study Comment : Sex / Age : F / 23Y Creator : MAEGAN MARTIN Dictator : Insulation Professional : Summer Analyst : MAEGAN MARTIN Approver2 : Report Date : 02/29/2024 10:22:03 My Comment : PROCEDURE INFORMATION: Exam: XR Right Hand Exam date and time: 02/29/2024 9:02 AM Age: 23 years old Clinical indication: Injury or trauma; Fall; Blunt trauma (contusions or hematomas); Hand; Right; Additional info: Pain TECHNIQUE: Imaging protocol: Radiologic exam of the right hand. Views: 3 or more views. COMPARISON: No relevant prior studies available. FINDINGS: Bones/joints: Osseous structures are intact. No fracture or malalignment. Visualized joint surfaces are preserved. Soft tissues: Unremarkable. IMPRESSION: Negative exam. No acute bony abnormalities. Procedures Risk/Benefits of Procedure(s) Were Explained: Yes Orthopedic Splinting/Casting Injury #1: Side: right Upper Extremity Injury Location: forearm, wrist and hand Upper Extremity Immobilizer: volar splint and applied by nurse/dr rolon Post Cast/Splinting Neuro Status: intact and no change Post Cast/Splinting Vasc Status: intact and no change
[2024-02-29 09:42] VITALS: BP 124/72; PULSE 90; RESP 18; TEMP 36.6; O2SAT 100
== END 2024-02-29 09:47 | disposition home or self-care (01) ==
PROVIDERS: Emergency Provider Nurse Practitioner; PCP Nurse Practitioner Family
DX: S63.91XA Sprain of unspecified part of right wrist and hand, initial encounter (principal); M79.641 Pain in right hand; W19.XXXA Unspecified fall, initial encounter
CPT/HCPCS: 73110; 73130; 99212; 99214; G0463

== ENCOUNTER 2024-03-08 09:25 | Outpatient (CLI) | payer BC, SELFPAY ==
--- NOTE | 2024-03-08 09:28 | XR_ITS ---
FINAL REPORT CLINICAL HISTORY: right wrist fx COMPARISON: None FINDINGS: RIGHT WRIST 4 views demonstrate no acute fracture or dislocation. There is a focus of increased density within the scaphoid, with slight cortical irregularity of the scaphoid as well. The visualized joint spaces are normally aligned. The soft tissues are unremarkable. IMPRESSION: Focus of increased density within the scaphoid, with slight cortical irregularity of the scaphoid. No definite acute fracture or dislocation is visualized. If pain persists, correlation with MRI would be helpful for further evaluation. Reviewed, Interpreted and Dictated by Luis Nayak MD Transcribed by Lamar Henley Authenticated and [facility]
== END 2024-03-08 23:59 | disposition home or self-care (01) ==
LOC: RAD 09:26
PROVIDERS: PCP Nurse Practitioner; Visit Provider Orthopaedic Surgery
DX: M25.531 Pain in right wrist (principal); S62.101A Fracture of unspecified carpal bone, right wrist, initial encounter for closed fracture
CPT/HCPCS: 73110

== ENCOUNTER 2024-03-27 11:10 | Emergency (ER) | payer BC, SELFPAY ==
[2024-03-27 11:45] VITALS: BP 119/85; PULSE 87; RESP 19; TEMP 37.2; O2SAT 99; BMI 21.6
--- NOTE | 2024-03-27 12:10 | EXP.UTC ---
Discharge Plan Disposition Patient Disposition: Home, Self-Care Condition: Good Prescriptions Prescriptions: No Action lamotrigine 150 mg tablet PO trazodone 50 mg tablet PO olanzapine 15 mg tablet,disintegrating PO metoprolol succinate [Toprol XL] 50 mg tablet extended release 24 hr 50 mg PO DAILY Qty: 30 2RF ibuprofen 600 mg tablet 600 mg PO Q6HP PRN (Reason: Mild Pain) Qty: 30 0RF Referrals Follow up/Referrals: Nell Gomez APRN [Primary Care Provider] - See instructions Activity Restrictions/Add. Instructions Additional Instructions/Restrictions: follow up with pcp if symptoms do not improve or worsen return Clinical Impressions Clinical Impression: Abdominal pain Instructions Patient Instructions: DI for Abdominal Pain-Adult, Painful Menstrual Periods Print Language Print Language: Kiswahili Discharge ED Provider: Minh ([facility])Pascual [facility] HPI General Stated complaint: vaginal bleeding, positive tests Mode of Arrival: Ambulatory Source of Information: Patient Limitations: No Limitations Time Seen by Provider: 03/27/24 12:10 Description of Symptoms (Recalled from Triage Doc. by RN): PATIENT REPORTS HAVING 3 POSITIVE AT HOME TEST, BUT STATES SHE IS HAVING VAGINAL BLEEDING X 2 DAYS AND LOWER ABDOMINAL CRAMPS WHICH SHE STATES FEELS LIKE HER REGULAR PERIOD HEENT Symptoms (Recalled from RN notes): No Resp Symptoms (Recalled from RN notes): No Skin Symptoms (Recalled from RN notes): No MS Symptoms (Recalled from RN notes): No Functional Status (Recalled from RN notes): WNL History of Present Illness Provider Complaint: 23 yr old female presents for vaginal bleeding, 3 faint positive tests at home. pt states on 03/25 she realized she had not started her period yet(unknown date of last period- sometime last month) and took a test and it had a faint line. pt states later that day she started bleeding like her period had started but it stopped later that night. pt states then the next day she again was bleeding with like cramps and she took 2 more test that showed a faint line. pt states she had continued to have vaginal bleeding states like her normal period and she wanted to get checked out. pt states it is just mild cramping and it only comes and goes. Related Data Home Medications ?Medication ?Instructions ?Recorded ?Confirmed lamotrigine 150 mg tablet mg PO 06/10/24 08/29/24 olanzapine 15 mg disintegrating mg PO 12/29/23 03/18/24 tablet trazodone 50 mg tablet mg PO 12/29/23 03/18/24 Previous Rx's ?Medication ?Instructions ?Recorded ibuprofen 600 mg tablet 600 mg PO Q6HP PRN Mild Pain #30 02/29/24 tabs metoprolol succinate 50 mg 50 mg PO DAILY #30 tabs 03/18/24 tablet,extended release 24 hr (Toprol XL) Allergies Allergy/AdvReac Type Severity Reaction Status Date / Time No Known Allergies Allergy Verified 03/18/24 14:00 Worker's Comp Is this a Worker's Comp case?: No [facility] Disclaimer: The information contained in this section may have been updated after the patient was seen, as this information can be updated by other users. Medical History , BAR HELPER) Migraine Inappropriate sinus tachycardia Dizziness Syncope Chest pain Palpitations Hematuria Hypertension Surgical History , BAR HELPER) History of esophagogastroduodenoscopy (EGD) History of endometrial ablation Family History , BAR HELPER) Family history of cancer Social History , BAR HELPER) Smoking Status: Current every day smoker second hand exposure: Yes alcohol intake: current substance use type: denies use current occupational status: other Travel in the last 8 weeks: None ROS Obtained: Yes All systems reviewed & no additional complaints except as documented Constitutional Constitutional: Reports system reviewed and no additional complaints, except as documented Eyes Eyes: Reports system reviewed and no additional complaints, except as documented ENT Ears, Nose, Mouth, and Throat: Reports system reviewed and no additional complaints, except as documented Cardiovascular Cardiovascular: Reports system reviewed and no additional complaints, except as documented Respiratory Respiratory: Reports system reviewed and no additional complaints, except as documented Gastrointestinal Gastrointestingal: Reports system reviewed and no additional complaints, except as documented, as per HPI and cramping Genitourinary Female Genitourinary: Reports system reviewed and no additional complaints, except as documented, Reports as per HPI, Reports abnormal menses and Reports other Musculoskeletal Musculoskeletal: Reports system reviewed and no additional complaints, except as documented Integumentary/Breasts Skin/Breast: Reports system reviewed and no additional complaints, except as documented Endocrine Endocrine: Reports system reviewed and no additional complaints, except as documented Hematologic/Lymphatic Henatologic/Lymphatic: Reports system reviewed and no additional complaints, except as documented Allergic/Immunologic Allergic/Immunologic: Reports system reviewed and no additional complaints, except as documented Physical Exam General General appearance: alert and in no apparent distress Head Head exam: atraumatic ENT ENT exam: Present normal exam Chest Chest inspection: Present normal inspection Respiratory Respiratory exam: Present normal lung sounds bilaterally Cardiovascular Cardiovascular exam: Present regular rate and normal rhythm Abdominal Exam Abdominal exam: Present soft and normal bowel sounds; Absent distention, tenderness, guarding, rebound or rigidity Neurological Exam Neurological exam: Present alert and oriented X3 Lymphatic Lymphatic Findings: no adenopathy Medical Decision Making Medical Records Medical records reviewed: Yes I reviewed the patient's medical records. [place] Inquiry Pt receiving controlled substance: No Aquil[place] was queried for this patient: No Vital Signs: 03/27/24 11:45 Temperature 99.0 F Temperature Source Oral Pulse Rate [Left Brachial] 87 Respiratory Rate 19 Blood Pressure [Left Arm] 119/85 Blood Pressure Mean [Left Arm] 96 Blood Pressure Source [Left Arm] Automatic Cuff Blood Pressure Position [Left Arm] Sitting 02 Sat by Pulse Oximetry 99 Oxygen Delivery Method Room Air Lab Data Lab results reviewed: Yes I reviewed the patient's lab results. Orders (Tests/Meds): ORDERS Category Date Time Status HCG Qualitative, Serum Stat Lab 03/27/24 12:09 Ordered
[2024-03-27 12:17] LABS: UTC Pregnancy Test, Urine Negative (Negative)
[2024-03-27 12:52] LABS: HCG Qualitative, Serum Negative (Negative)
[2024-03-27 13:05] VITALS: BP 119/85; PULSE 87; RESP 19; TEMP 37.2; O2SAT 99
== END 2024-03-27 13:07 | disposition home or self-care (01) ==
PROVIDERS: Emergency Provider Nurse Practitioner Family; PCP Nurse Practitioner
DX: R10.819 Abdominal tenderness, unspecified site (principal); R25.2 Cramp and spasm; Z32.02 Encounter for pregnancy test, result negative
CPT/HCPCS: 81025; 84703; 99212; 99213; G0463

== ENCOUNTER 2024-03-30 13:05 | Outpatient (CLI) | payer BC, SELFPAY ==
--- NOTE | 2024-03-30 13:06 | MR_ITS ---
FINAL REPORT CLINICAL HISTORY: Rt Hand pain. RADIAL SIDED PAIN. COMPARISON: None FINDINGS: Multiplanar MR imaging of the right hand was performed without contrast. There is motion on many sequences which limits overall image quality. The bony structures are intact without evidence of fracture or bone marrow edema. No bony mass is identified. The flexor and extensor tendons are intact. The musculature is intact. No soft tissue mass or cyst is identified. IMPRESSION: Unremarkable MRI of the right hand. Reviewed, Interpreted and Dictated by Pavan Wong III, MD Transcribed by Lamar Henley Authenticated and [facility]
--- NOTE | 2024-03-30 13:06 | MR_ITS ---
FINAL REPORT CLINICAL HISTORY: Rt wrist pain. RADIAL SIDED PAIN. COMPARISON: None FINDINGS: Multiplanar MR imaging of the right wrist was performed without contrast. There is a presumed scaphoid bone island. The bony structures are intact without evidence of fracture, bone bruise or marrow edema. There is slight increased signal in the scapholunate ligament on T2 weighted images, and a small tear is not excluded. The triangular fibrocartilage is intact. There is mild tenosynovitis of the extensor carpi radialis brevis tendon. No soft tissue mass or cyst is identified. No focal abnormality is identified of the median nerve. IMPRESSION: Mild tenosynovitis of the ECRB. Slight increased T2 signal in the scapholunate ligament, with a small tear not excluded. Reviewed, Interpreted and Dictated by Pavan Wong III, MD Transcribed by Lamar Henley Authenticated and . [facility]
== END 2024-03-30 23:59 | disposition home or self-care (01) ==
LOC: RAD 13:06
PROVIDERS: PCP Nurse Practitioner; Visit Provider Physician Assistant
DX: S62.001A Unspecified fracture of navicular [scaphoid] bone of right wrist, initial encounter for closed fracture (principal); S63.91XA Sprain of unspecified part of right wrist and hand, initial encounter
CPT/HCPCS: 73218; 73221

== ENCOUNTER 2024-06-03 07:00 | Outpatient (RCR) | payer BC, SELFPAY | END 2024-07-08 09:39 | disposition home or self-care (01) | LOC: PT 07:00 | PROVIDERS: Visit Provider Physician Assistant | DX: M25.531 Pain in right wrist (principal); S63.511A Sprain of carpal joint of right wrist, initial encounter | CPT/HCPCS: 97014; 97035; 97110; 97163; 97164; 97530; G0283 ==

== ENCOUNTER 2025-02-27 22:25 | Emergency (ER) | payer BC, SELFPAY ==
[2025-02-27 22:37] VITALS: BP 150/84; PULSE 64; RESP 18; TEMP 36.6; O2SAT 99; BMI 25.2
--- OUTSIDE RECORDS SUMMARY | 2025-02-27 22:37 | XMS_ITS | Encounter Summary ---
Author Organization [employer] ([place], [place], [place], [place]) Address [address] [place] [address] Care Team Providers Care Waste Examiner Name Role Phone Nell Gomez SALES AGENT PROTECTIVE SERVICE Primary Care Provider [phone]- [phone] Encounter Details Date Type Department Care Team (Late st Contact Info) Description 05/21/2021 Transcribed Document [facility] [place] [facility] [place] [address] ProviderTylor MD [address] [place] [address] Social History Tobacco Use Types Packs/Day Years Used Date Smoking Tobacco: Never Assessed Comments Unknown Sex and Gender Information Value Date Recorded Sex Assigned at Female 01/15/2022 8:57 PM CDT Legal Sex Female 8:57 PM CDT Gender Identity Female 01/15/2022 8:57 PM CDT Sexual Orientation Not on file documented as of this encounter Miscellaneous Notes * Cerner Conversion Note - Historical ProviderMD - 05/21/2021 10:27 PM CDT Electronically signed by Eileen [facility] Conversion Safety Investigator Cerner at 11/05/2022 8:20 PM CDT documented in this encounter Plan of Treatment Not on file documented as of this encounter Visit Diagnoses Not on filedocumented in this encounter Care Teams Waste Examiner Relationship Specialty Start Date End Date Nell Gomez, SALES AGENT PROTECTIVE SERVICE [address] [place] [address] PCP - General Family Medicine 06/11/23 documented as of this encounter
--- OUTSIDE RECORDS SUMMARY | 2025-02-27 22:37 | XMS_ITS | Encounter Summary ---
Author Organization [employer] ([place], [place], [place], [place]) Address [address] [place] [address] Care Team Providers Care Directional Bore Operator Name Role Phone JasonNell Valarie FITZPATRICK Primary Care Provider [phone]- [phone] Encounter Details Date Type Department Care Team (Late st Contact Info) Description 05/21/2021 Transcribed Document [facility] [place] Family [place] [facility] [place] [address] ProviderTylor MD [address] [place] [id number] Social History Tobacco Use Types Packs/Day Years Used Date Smoking Tobacco: Never Assessed Comments Unknown Sex and Gender Information Value Date Recorded Sex Assigned at Female 01/15/2022 8:57 PM CDT Legal Sex Female 8:57 PM CDT Gender Identity Female 01/15/2022 8:57 PM CDT Sexual Orientation Not on file documented as of this encounter Miscellaneous Notes * Cerner Conversion Note - Tylor ProviderMD - 05/21/2021 6:10 PM CDT Pain Assessment Entered On: 05/21/2021 22:55 EDT Performed On: 05/21/2021 18:54 EDT by RADHA MENJIVAR RN Intervention Information: morphine Performed by Anna Sen RN on 05/21/2021 18:24:00 EDT morphine,4mg IV Push,Left Hand Pain Assessment Pain Assessment : Follow-up assessment Pain Scale Used : 0-10 Scale Location : Abdominal Onset : Acute RADHA MENJIVAR RN - 05/21/2021 22:55 EDT Pain Scale Intensity : 6 RADHA MENJIVAR RN - 05/21/2021 22:55 EDT Image 4 - Images currently included in the form version of this document have not been included in the text rendition version of the form. documented in this encounter Plan of Treatment Not on file documented as of this encounter Visit Diagnoses Not on filedocumented in this encounter Care Teams Directional Bore Operator Relationship Specialty Start Date End Date Nell Gomez, TOY ASSEMBLER [address] [id number] PCP - General Family Medicine 06/11/23 documented as of this encounter
--- OUTSIDE RECORDS SUMMARY | 2025-02-27 22:37 | XMS_ITS | Encounter Summary ---
Author Organization [employer] ([place], [place], [place], [place]) Address [address] [place] [address] Care Team Providers Care Crimp Setter Name Role Phone JasonNell Valarie FITZPATRICK Primary Care Provider [phone] Encounter Details Date Type Department Care Team (Late st Contact Info) Description 05/21/2021 Transcribed Document [facility] Family Medicine [facility] [place] [address] ProviderTylor MD [address] [place] [address] Social History Tobacco Use Types [...] Conversion Note - Tylor ProviderMD - 05/21/2021 3:21 PM CDT ED Assessment Entered On: 05/21/2021 18:03 EDT Performed On: 05/21/2021 18:01 EDT by Anna Sen RN ED Quick Look Assessment Level of Consciousness : Alert, Awake Orientation : Oriented x 4 Skin Temperature : Warm Skin Description : Dry Anna Sen RN - 05/21/2021 18:01 EDT ED General-Functional Assess Communication Barrier : None Primary Language : Colombian Any Spiritual/Cultural Needs or Requests : No Currently in Unsafe Situation : No Anna Sen RN - 05/21/2021 18:01 EDT Social Habits Smoking Status : Refused tobacco status screen Smokeless Tobacco Status : Refused tobacco status screen Desires Tobacco Cessation Calc : 0 Anna Sen RN - 05/21/2021 18:01 EDT Social History (As Of: 05/21/2021 18:03:43 EDT) Respiratory Breath Sounds Assessment Grid All Lobes Breath Sounds : Clear SHUN : Clear LLL : Clear RUL : Clear RML : Clear RLL : Clear Anna Sen RN - 05/21/2021 18:01 EDT Gastrointestinal ED Gastrointestinal Assessment WDL : WDL with exceptions (Comment: dx with abdominal issues something is wrong with my two arteries in my stomach they said and told me to go see GI and then GI told me to go see vacular . pt c/o consistent generalized abdominal pain. denies diarrhea, denies vomiting. reports + nausea; abdomen soft, nondistended, tender upon palpation [Anna Sen RN - 05/21/2021 18:01 EDT] ) Gastrointestinal Symptoms : Abdominal pain Anna Sen RN - 05/21/2021 18:01 EDT Bowel Sounds Bowel Sounds All Quadrants : Active LLQ : Active LUQ : Active RLQ : Active RUQ : Active Anna Sen RN - 05/21/2021 18:01 EDT Neurologic ASMT, ED Affect/Behavior : Appropriate, Calm Speech : Clear Orientation : Oriented x 4 Pupils Equal, Round, Reactive to Light : Yes Pupil Description, Left : Regular, Round Pupil Reaction, Left : Brisk Pupil Description, Right : Regular Pupil Reaction, Right : Brisk Pupil Size, Left : 3 mm Pupil Size, Right : 3 mm Facial Symmetry : Symmetric Gait Assistance Level : Independent, complete Gwendolyn Coma Scale Link : Open GCS Anna Sen RN - 05/21/2021 18:01 EDT Neponset Coma Neponset Best Motor Response : Obey commands Neponset Best Verbal Response : Oriented Gwendolyn Eye Opening Response : Spontaneous [place] Coma Score : 15 Anna Sen RN - 05/21/2021 18:01 EDT documented in this encounter Plan of Treatment Not on file documented as of this encounter Visit Diagnoses Not on filedocumented in this encounter Care Teams Crimp Setter Relationship Specialty Start Date End Date Nell Gomez, [employer] HELPER [address] [place] [address] PCP - General Family Medicine 06/11/23 documented as of this encounter
--- OUTSIDE RECORDS SUMMARY | 2025-02-27 22:37 | XMS_ITS | Encounter Summary ---
Author Organization [employer] ([place], [place], [place], [place]) Address [address] [place] [address] Care Team Providers Care Cancellation Clerk Name Role Phone Keeley Gomez Valarie FITZPATRICK Primary Care Provider [phone]- [phone] Encounter Details Date Type Department Care Team (Late st Contact Info) Description 05/21/2021 Transcribed Document [facility] [place] [address] ProviderTylor MD [address] [place] [id number] Social History Tobacco Use Types Packs/Day Years Used Date Smoking Tobacco: Never Assessed Comments Unknown Sex and Gender Information Value Date Recorded Sex Assigned at Female 01/15/2022 8:57 PM CDT Legal Sex Female 8:57 PM CDT Gender Identity Female 01/15/2022 8:57 PM CDT Sexual Orientation Not on file documented as of this encounter Miscellaneous Notes * Cerner Conversion Note - Tylor Martinez MD - 05/21/2021 6:22 PM CDT Patient: VANE MARI Age: 20 years Sex: Female : 2000 Associated Diagnoses: Abdominal pain Author: DIGNA DICKERSON MD-EMR Basic Information Additional information: Chief Complaint from Nursing Triage Note : Chief Complaint 05/21/2021 15:28 EDT Chief Complaint Pt presents with abdominal pain. Recurrent abdominal pain x 2 weeks. Nauseated. Has followed up with her PCP who has referred her to gastro. Has not followed up yet. . History of Present Illness The patient presents with abdominal pain. The onset was 2 weeks ago. The course/duration of symptoms is constant. The character of symptoms is achy. The Location of pain at onset was abdominal. The Location of pain at present is abdominal. Radiating pain: none. Associated symptoms: nausea. Here for abdominal pain. Patient says that she is having pain in the middle of her stomach for the past 2 weeks. She went to outside hospital and says she was diagnosed with a superior mesenteric artery syndrome. She is not followed up with anybody for that yet. Has had continued pain. Also reports nausea. Regular bowel movements.. Review of Systems Constitutional symptoms: No fever, no chills. Respiratory symptoms: No shortness of breath, no cough. Cardiovascular symptoms: Negative except as documented in HPI. Gastrointestinal symptoms: Negative except as documented in HPI. Genitourinary symptoms: No dysuria, no hematuria. Neurologic symptoms: Negative except as documented in HPI. Additional review of systems information: All other systems reviewed and otherwise negative. Health Status Allergies: Allergic Reactions (Selected) No Known Allergies. Medications: (Selected) Inpatient Medications Ordered Sodium Chloride 0.9% bolus: 1,000 mL, 1,000 mL/Hr, IV Piggyback, 1-Time Zofran: 4 mg, IV Push, 1-Time morphine: 4 mg, IV Push, 1-Time. Past Medical/ Family/ Social History Surgical history: No active procedure history items have been selected or recorded.. Family history: No family history items have been selected or recorded.. Social history: Social & Psychosocial Habits No Data Available . Problem list: No qualifying data available . Physical Examination Vital Signs Vital Signs/Vital Measures 05/21/2021 15:28 EDT Systolic Blood Pressure 118 mmHg Diastolic Blood Pressure 80 mmHg Temperature Source Oral Temperature Mode Fahrenheit Temperature, Fahrenheit 97.8 Deg F Clinical Temperature, C 36.6 Deg C Peripheral Pulse Rate 85 bpm Respiratory Rate 18 Breaths/Min Oxygen Saturation 97 % Oxygen Therapy Mode Room air . Measurements 05/21/2021 15:28 EDT Height Source Stated Height Entry Format [place] Height/Length, TURKISH (ft) 5 ft Height/Length TURK[place] 8 Inch CLINICALHEIGHT 172.72 cm [place] Body Weight 63.45 kg Weight Source, ED Critical estimated dosing weight Weight Entry Format [place] Weight Pakistani lb 120 lb CLINICALWEIGHT 54.55 kg Body Surface Area (BSA) 1.65 m2 Body Mass Index 18.3 kg/m2 LOW . Oxygen Saturation 05/21/2021 15:28 EDT Oxygen Saturation 97 % . General: Alert, no acute distress. Skin: Warm, dry, pink, intact. Head: Normocephalic, atraumatic. Neck: Supple, trachea midline. Eye: Pupils are equal, round and reactive to light, extraocular movements are intact, normal conjunctiva. Cardiovascular: Regular rate and rhythm, No murmur, Normal peripheral perfusion. Respiratory: Lungs are clear to auscultation, respirations are non-labored, breath sounds are equal, Symmetrical chest wall expansion. Gastrointestinal: Soft, Tenderness: Mild, periumbilical, Guarding: Negative, Rebound: Negative. Musculoskeletal: Normal ROM, normal strength. Neurological: Alert and oriented to person, place, time, and situation, No focal neurological deficit observed, normal sensory observed, normal motor observed, normal coordination observed. Psychiatric: Cooperative, appropriate mood & affect. Medical Decision Making Documents reviewed: Emergency department nurses' notes. test: UCG-negative. Results review: Lab results : Lab Results 05/21/2021 20:23 EDT HCG Result Negative Internal Control Line Present Yes Internal Control Background Clear Yes 05/21/2021 18:04 EDT Sodium Level 139 mmol/L Potassium Level 4.0 mmol/L Chloride Level 109 mmol/L Carbon Dioxide Level 24 mmol/L Anion Gap 10 Glucose Level 75 mg/dL Blood Urea Nitrogen 16 mg/dL Creatinine Level 0.70 mg/dL eGFR >60 mL/min/1.73m2 eGFR NonAfrican >60 mL/min/1.73m2 Bun/Creatinine 22.9 HI Calcium Level 9.8 mg/dL Protein Total 7.6 Gram/dL Albumin Level 4.3 Gram/dL Globulin 3.3 Gram/dL A/G Ratio 1.3 Bilirubin Total 0.6 mg/dL Bilirubin Direct 0.1 mg/dL Alk Phos 50 Units/Liter AST 16 Units/Liter ALT 30 Units/Liter Lipase Level 127 Units/Liter WBC 8.8 K/uL RBC 4.45 Million/uL Hgb 12.9 g/dL Hct 38.9 % MCV 87.4 fL MCH 29.0 pg MCHC 33.2 Gram/dL Platelet Count 273 K/uL MPV 11.3 fL RDW 12.9 % Neut % 54.5 % Neut # 4.81 K/uL Lymph % 34.0 % Lymph # 3.00 x10(3)/uL Boyle % 6.7 % Boyle # 0.59 K/uL Eos % 3.5 % Eos # 0.31 x10(3)/uL Baso % 0.8 % Baso # 0.07 x10(3)/uL Slide Review No IG# 0.04 x10(3)/uL IG% 0.50 % 05/21/2021 16:48 EDT Urine Type. U CleanCatch Urine Color Yellow Urine Appearance Cloudy Urine Specific [place] 1.011 Urine pH Dipstick 6.5 Urine Leukocyte Esterase Negative Urine Nitrite Negative Urine Protein Dipstick Negative Urine Glucose Dipstick Negative Urine Ketones Dipstick Negative Urine Urobilinogen Dipstick 0.2 EU/dL Urine Bilirubin Dipstick Negative Urine Blood Dipstick Negative Ur WBC None Seen /HPF Ur Amorph 1+ Ur Squamous Epithelial Cells 0-2 /HPF Urine Culture if Indicated Not Indicated . Radiology results: Radiology Results (Last 48 hours) [id number] -- 05/21/2021 15:21 CTA Abdomen Pelvis (05/21/2021 20:50) Result: CT ANGIOGRAPHY, ABDOMEN AND PELVIS 05/21/2021 6:10 PM HISTORY:Abdominal pain.PROCEDURE: Multiple axial CT images were obtained through the abdomen and pelvisduring the arterial phase according to the CTA abdomen pelvis protocol.Multiplanar reformatted images were reconstructed from the axial dataset, additionally extensive 3D reconstruction images were performed andprovided for interpretation. This study was performed with techniques tokeep radiation doses as low as reasonably achievable, (ALARA).Individualized dose reduction techniques using automated exposurecontrol or adjustment of mA and/or kV according to the patient size wereemployed.COMPARISON:None.FINDINGS: VASCULAR:The abdominal aorta is normal in caliber. The celiac trunk, superiormesenteric artery, inferior mesenteric artery and their major branchesare patent. The renal arteries are patent. There is no significantstenosis or atherosclerotic plaque. The common, internal and externaliliac arteries are patent. The visualized portions of the common,superficial and deep femoral arteries are patent and unremarkable.NONVASCULAR:LOWER CHEST:The heart is normal in size. Lung bases are clear.ABDOMEN/PELVIS:Liver, gallbladder and bile ducts:The liver enhances homogenously without suspicious focal hepatic lesion.Unremarkable gallbladder. No significant biliary ductal dilatation. Adrenal glands:The adrenal glands are morphologically unremarkable without suspiciouslesion.Kidneys, ureters and urinary bladder:No suspicious renal lesions. No hydronephrosis. Unremarkable urinarybladder.Spleen:The spleen is normal in size.Pancreas:The pancreas is unremarkable. Gastrointestinal system and mesentery:There is no evidence of bowel obstruction. The appendix is visualizedand unremarkable. No significant mesenteric inflammation.Lymph nodes:No pathologically enlarged abdominal or pelvic lymph nodes are present.Vessels:The superior mesenteric vein, splenic vein and main portal veins arepatent. The inferior vena cava is unremarkable.Peritoneum:No free intraperitoneal fluid or pneumoperitoneum.Pelvic viscera:No acute findings.Body wall:No body wall contusion. No significant body wall hernias.Bones:No acute fracture.IMPRESSION: No acute aortic or arterial pathology within the abdomen or pelvis.No acute findings in the abdomen or pelvis, specifically the stomach andduodenum are normal in caliber and there is no specific CT evidence ofsuperior mesenteric artery syndrome. Images personally reviewed, interpreted and dictated by Sung Ness . Impression and Plan Diagnosis Abdominal pain - Discharge, Emergency medicine, Medical Plan Condition: Stable. Disposition: Discharged Admit/Transfer/Discharge: Discharge (Order): Start: 05/21/2021 22:28 EDT, Discharge to: Home , Patient care transitioned to: Time: 05/21/2021 19:00:00, SHANTANU CHAVEZ DO. Prescriptions: Prescription Medical Appointment Scheduler Pharmacy: [facility] 4 mg oral tablet, disintegrating (Prescribe): 1 Tab, Oral, TID, for 3 Day(s), 9 Tab, 0 Refill(s) [place] 5 mg-325 mg oral tablet (Prescribe): 1 Tab, Oral, Q4H, for 3 Day(s), PRN: for pain, 5 Tab, 0 Refill(s) . Patient was given the following educational materials: Abdominal Pain, Adult. Follow up with: KEELEY GOMEZ Within 2 to 3 days; ERI MARQUEZ Within 2 to 3 days, ERI MARQUEZ Within 2 to 3 days; KEELEY GOMEZ Within 2 to 3 days. Counseled: Patient, Regarding diagnosis, Regarding diagnostic results, Regarding treatment plan, Regarding prescription, Patient indicated understanding of instructions. Notes: Emergency department course, labs unremarkable. hCG negative. CT angiogram shows no evidence of superior mesenteric artery syndrome. There is no evidence of any acute findings. Repeat abdominal examination shows no peritoneal signs. She is hemodynamically stable tolerating p.o. fluids. Patient reports having superior mesenteric artery syndrome in an outlying ED in [place] at [facility] and was told to follow-up with gastroenterology and was unable to do so. She was also told to follow-up with vascular doctor but was unable to get into anyone. She is requesting a referral. I have provided her with this referral for alleged superior mesenteric artery syndrome. Certainly there is no evidence of this presently. I gave her clear return precautions. She did request pain medication. She states the last pain medication she received was Tylenol with codeine on May 10. I did a [place] review that showed that this was appropriate. I gave her 5 low-dose hydrocodone. I gave her clear return precautions. documented in this encounter Plan of Treatment Not on file documented as of this encounter Visit Diagnoses Not on filedocumented in this encounter Care Teams Cancellation Clerk Relationship Specialty Start Date End Date Keeley Gomez, COUNTER INSTALLER [address] [id number] PCP - General Family Medicine 06/11/23 documented as of this encounter
--- OUTSIDE RECORDS SUMMARY | 2025-02-27 22:37 | XMS_ITS | Encounter Summary ---
Author Organization [employer] ([place], [place], [place], [place]) Address [address] [place] [address] Care Team Providers Care Funding Coordinator Name Role Phone JasonKeeley Valarie FITZPATRICK Primary Care Provider [phone]- [phone] Encounter Details Date Type Department Care Team (Late st Contact Info) Description 05/21/2021 Transcribed Document [facility] [place] Family Medicine [facility] [place] [address] ProviderTylor MD [address] [place] [address] Social History Tobacco Use Types [...] Note - Tylor Martinez MD - 05/21/2021 10:41 PM CDT [facility] [address] [place] [id number] VANE MARI :2000 Visit Time:05/21/2021 Your Visit Summary Your Care Team Primary Provider: SHANTANU CHAVEZ Secondary Provider: Your Diagnosis Abdominal pain Abdominal pain Medical Information You may obtain a copy of your Emergency Department visit from Medical Records by calling the hospital phone number listed above and asking to be directed to the Medical Records Department. If you had special tests, such as EKG???s or X-rays, the interpretation of your tests given to you by the Emergency Department Physician is a preliminary report. Some fractures and illnesses fail to show up on preliminary tests. These will be reviewed again and we will call you if there are any new suggestions. If your symptoms continue notify your physician. After you leave, you should follow the instructions provided. What to do next Follow-Up Appointments Follow Up with ERI MARQUEZ When Within 2 to 3 days Where: [facility] [id number] [place] [address] Business (1) Follow Up with KEELEY GOMEZ When Within 2 to 3 days Where: [place] [address] [facility] (1) Allergies No Known Allergies Immunizations This Visit No Immunizations Found Medications What How Much When Instructions Next Dose acetaminophen-hydrocodone ([place] 5 mg-325 mg oral tablet) 1 Tablet(s) Oral Every 4 Hours as needed for for pain Duration: 3 Day(s) Pickup at [facility] ondansetron (Zofran ODT 4 mg oral tablet, disintegrating) 1 Tablet(s) Oral Three Times A Day Duration: 3 Day(s) Pickup at [facility] Pharmacy Information [facility]: [address] [place] [address] [phone] The home medications listed are only as accurate as the information you provided. Please continue taking all of your medications prescribed by your Primary Care Provider unless specifically told to change or discontinue the medication. Please direct any questions regarding your home medications to your Primary Care Provider. Take your medications faithfully. Do NOT skip medication. Do NOT stop taking medications without the direction of a physician. Carry a list of your medications with you at all times, and take this medication list with you to your first follow up visit. Report any side effects. Avoid herbal remedies unless discussed with your physician. As part of your treatment plan, your physician may have prescribed a limited course of a controlled substance. This medication may be given to help people with moderate or severe pain or for other medical conditions, but there are risks involved with treatment. Common side effects may include nausea, constipation, drowsiness, sweating, itching, dry mouth, and rash. More serious side effects may include cognitive and motor impairment, like problems with thinking, concentrating, alertness, and movement (e.g. slowed reflexes), and driving and operating heavy machinery can be dangerous. It is important for you to talk to your physician if you have these side effects or questions. These controlled substances can produce physical dependence and be habit-forming if taken for an extended period of time, which means that the body has gotten used to them and may experience withdrawal symptoms if they are abruptly stopped. Withdrawal symptoms can include runny nose, sweating, goose bumps, diarrhea, abdominal cramping, rapid heartbeat, difficulty sleeping, and nervousness. Please dispose of unused and medications per pharmacy guidance. Test Results Laboratory or Other Results This Visit (last charted value for your 05/21/2021 visit) Hematology 05/21/2021 6:04 PM WBC: 8.8 K/uL -- Normal range between ( 4.5 and 10.5 ) RBC: 4.45 Million/uL -- Normal range between ( 3.93 and 5.22 ) Hct: 38.9 % -- Normal range between ( 34.1 and 44.9 ) Hgb: 12.9 g/dL -- Normal range between ( 11.2 and 15.7 ) Platelet Count: 273 K/uL -- Normal range between ( 163 and 369 ) MCH: 29.0 pg -- Normal range between ( 25.6 and 32.2 ) MCHC: 33.2 Gram/dL -- Normal range between ( 32.2 and 36.5 ) MCV: 87.4 fL -- Normal range between ( 79.0 and 94.8 ) Slide Review: No Eos %: 3.5 % -- Normal range between ( 0.0 and 7.0 ) Obion #: 0.59 K/uL -- Normal range between ( 0.16 and 1.00 ) Eos #: 0.31 x10(3)/uL -- Normal range between ( 0.00 and 0.80 ) Obion %: 6.7 % -- Normal range between ( 3.0 and 9.0 ) Baso %: 0.8 % -- Normal range between ( 0.0 and 1.5 ) Baso #: 0.07 x10(3)/uL -- Normal range between ( 0.00 and 0.20 ) RDW: 12.9 % -- Normal range between ( 11.7 and 14.9 ) Neut %: 54.5 % -- Normal range between ( 34.0 and 71.0 ) Neut #: 4.81 K/uL -- Normal range between ( 1.56 and 6.13 ) Lymph %: 34.0 % -- Normal range between ( 19.3 and 53.1 ) Lymph #: 3.00 x10(3)/uL -- Normal range between ( 1.00 and 3.90 ) MPV: 11.3 fL -- Normal range between ( 9.4 and 12.4 ) IG#: 0.04 x10(3)/uL -- Normal range between ( 0.00 and 0.05 ) IG%: 0.50 % -- Normal range between ( 0.00 and 0.60 ) Urinalysis 05/21/2021 4:48 PM Urine Nitrite: Negative Urine Leukocyte Esterase: Negative Urine Appearance: Cloudy Urine Glucose Dipstick: Negative Urine Blood Dipstick: Negative Urine Urobilinogen Dipstick: 0.2 EU/dL Urine Protein Dipstick: Negative Ur Amorph: 1+ Ur Squamous Epithelial Cells: 0-2 /HPF Urine Color: Yellow Ur WBC: None Seen /HPF Urine Ketones Dipstick: Negative Urine pH Dipstick: 6.5 -- Normal range between ( 6.0 and 8.0 ) Urine Bilirubin Dipstick: Negative Urine Specific [place]: 1.011 -- Normal range between ( 1.005 and 1.030 ) Urine Type.: U CleanCatch Urine Culture if Indicated: Not Indicated General Chemistry 05/21/2021 6:04 PM Creatinine Level: 0.70 mg/dL -- Normal range between ( 0.55 and 1.02 ) Sodium Level: 139 mmol/L -- Normal range between ( 136 and 146 ) Potassium Level: 4.0 mmol/L -- Normal range between ( 3.5 and 5.1 ) Chloride Level: 109 mmol/L -- Normal range between ( 102 and 112 ) Carbon Dioxide Level: 24 mmol/L -- Normal range between ( 21 and 32 ) Anion Gap: 10 -- Normal range between ( 9 and 20 ) Bilirubin Total: 0.6 mg/dL -- Normal range between ( 0.2 and 1.2 ) A/G Ratio: 1.3 -- Normal range between ( 1.1 and 2.5 ) ALT: 30 Units/Liter -- Normal range between ( 13 and 56 ) AST: 16 Units/Liter -- Normal range between ( 5 and 37 ) Globulin: 3.3 Gram/dL -- Normal range between ( 1.5 and 4.5 ) Alk Phos: 50 Units/Liter -- Normal range between ( 27 and 136 ) Bilirubin Direct: 0.1 mg/dL -- Normal range between ( 0.0 and 0.2 ) Bun/Creatinine: 22.9 -- Normal range between ( 8.0 and 20.0 ) Calcium Level: 9.8 mg/dL -- Normal range between ( 8.4 and 10.1 ) eGFR : >60 mL/min/1.73m2 eGFR NonAfrican: >60 mL/min/1.73m2 Glucose Level: 75 mg/dL -- Normal range between ( 74 and 106 ) Blood Urea Nitrogen: 16 mg/dL -- Normal range between ( 7 and 22 ) Protein Total: 7.6 Gram/dL -- Normal range between ( 6.4 and 8.2 ) Albumin Level: 4.3 Gram/dL -- Normal range between ( 3.4 and 5.0 ) Lipase Level: 127 Units/Liter -- Normal range between ( 73 and 393 ) Computed Tomography 05/21/2021 8:50 PM CTA Abdomen Pelvis: CTA Abdomen Pelvis Education Materials Abdominal Pain, Adult Pain in the abdomen (abdominal pain) can be caused by many things. Often, abdominal pain is not serious and it gets better with no treatment or by being treated at home. However, sometimes abdominal pain is serious. Your health care provider will ask questions about your medical history and do a physical exam to try to determine the cause of your abdominal pain. Follow these instructions at home: Medicines ??? Take [id number] and prescription medicines only as told by your health care provider. ??? Do not take a laxative unless told by your health care provider. General instructions ??? Watch your condition for any changes. ??? Drink enough fluid to keep your urine pale yellow. ??? Keep all follow-up visits as told by your health care provider. This is important. Contact a health care provider if: ??? Your abdominal pain changes or gets worse. ??? You are not hungry or you lose weight without trying. ??? You are constipated or have diarrhea for more than 2???3 days. ??? You have pain when you urinate or have a bowel movement. ??? Your abdominal pain wakes you up at night. ??? Your pain gets worse with meals, after eating, or with certain foods. ??? You are vomiting and cannot keep anything down. ??? You have a fever. ??? You have blood in your urine. Get help right away if: ??? Your pain does not go away as soon as your health care provider told you to expect. ??? You cannot stop vomiting. ??? Your pain is only in areas of the abdomen, such as the right side or the left lower portion of the abdomen. Pain on the right side could be caused by appendicitis. ??? You have bloody or black stools, or stools that look like tar. ??? You have severe pain, cramping, or bloating in your abdomen. ??? You have signs of dehydration, such as: ? Dark urine, very little urine, or no urine. ? Cracked lips. ? Dry mouth. ? Sunken eyes. ? Sleepiness. ? Weakness. ??? You have trouble breathing or chest pain. Summary ??? Often, abdominal pain is not serious and it gets better with no treatment or by being treated at home. However, sometimes abdominal pain is serious. ??? Watch your condition for any changes. ??? Take bpke-eti-budymry and prescription medicines only as told by your health care provider. ??? Contact a health care provider if your abdominal pain changes or gets worse. ??? Get help right away if you have severe pain, cramping, or bloating in your abdomen. This information is not intended to replace advice given to you by your health care provider. Make sure you discuss any questions you have with your health care provider. Document Revised: 08/25/2020 Document Reviewed: 11/15/2019 Elsevier Patient Education ?? 2020 Elsevier Inc. Emergency Awareness and Preventative Care STROKE is an EMERGENCY Every Minute Counts Act FAST and Check for these signs: FACE Does the face look uneven? ARM Does one arm drift down? SPEECH Does their speech sound strange? TIME Call at any sign of stroke Stroke Risk Factors Atrial Fibrillation (irregular heartbeat) Diabetes Family history of stroke Heart Disease Heavy alcohol use High Blood Pressure High Cholesterol Physical inactivity and obesity Smoking Cigarette Smoking The facts are clear, cigarette smoking will shorten your life. Smoking can cause many illnesses along the way. As a healthcare provider, we recommend that you stop smoking. Assistance with quitting is available by contacting 9-101-LQBM-NOW. This is a free resource providing counseling, support, and referral. Or you may contact your personal physician. [place] Suicide Prevention Lifeline: The National Suicide Prevention Lifeline is a national network of local crisis centers that provides free and confidential emotional support to people in suicidal crisis or emotional distress 24 hours a day, 7 days a week. Don't Wait! Stop a Heart Attack Before it Starts What is a heart attack? A heart attack is damage or to a part of the heart from severely decreased or lack of blood flow to the heart. Over time, arteries can become narrow from the buildup of fat and cholesterol, which is called plaque. The plaque can rupture causing a blood clot to form. When the blood clot forms, the artery can become severely narrowed or completely blocked, causing a heart attack. Heart attack is the leading cause of in the [place]. 85% of muscle damage occurs within the first 2 hours. Delay in the recognition of heart attack symptoms increases the chances of . Know the early symptoms of a heart attack: Nausea Feeling of fullness in chest Jaw Pain Pain that travels down one or both arms Fatigue/being tired Anxiety Back Pain Chest pressure, squeezing, or discomfort Shortness of breath Sweating, or a cold sweat Feeling of impending doom There are unusual signs of a heart attack, too! Women, the elderly, and diabetics may present with atypical symptoms: Fainting/dizziness Weakness Confusion Risk Factors for a Heart Attack Some heart disease risk factors, such as age and family history, cannot be changed. Others, like smoking and lack of exercise, can be changed. Smoking High Cholesterol High Blood Pressure Family History Obesity Age Gender (Males are at higher risk) Lack of Exercise Diabetes Diet Stress Excessive Alcohol Intake If you or someone you know is experiencing the signs and symptoms of a heart attack, DON???T DELAY. Call immediately and seek help. If someone collapses, perform CPR! Do not attempt to drive if you are having symptoms of heart attack. Hands-Only CPR Why Hands-Only CPR? Hands-Only CPR has been shown to be as effective as conventional CPR for cardiac arrests that occur outside of a hospital. Survival depends on immediately receiving CPR from someone nearby. How do you perform Hands-Only CPR? There are two easy steps: Call 9-1-1 if you see a teen or adult collapse Push hard and fast in the center of the chest at a beat of 100 beats per minute. Save a life! 4 WAYS TO GET AHEAD OF SEPSIS SEPSIS is a MEDICAL EMERGENCY. Time matters! Infections put you and your family at risk for a life-threatening condition called sepsis. Sepsis is the body's extreme response to an infection. It is life-threatening, and without timely treatment, sepsis can rapidly lead to tissue damage, organ failure, and . Sepsis happens when an infection you already have-in your skin, lungs, urinary tract or somewhere else-triggers a chain reaction throughout your body. 1 PREVENT INFECTIONS Take good care of chronic conditions. Talk to your doctor about getting the recommended vaccines. 2 PRACTICE GOOD HYGIENE Wash your hands frequently. Keep cuts or open sores clean and covered until they are healed. 3 KNOW THE SYMPTOMS Confusion or disorientation Shortness of breath High heart rate Fever, shivering, or feeling very cold Extreme pain or discomfort Clammy or sweaty skin 4 ACT FAST Get medical care IMMEDIATELY if you suspect sepsis or if you have an infection that is not getting better or is getting worse. To learn more about sepsis and how to prevent infections, visit www.cdc.gov/sepsis. The examination and treatment you have received in the Emergency Department has been done to provide an appropriate evaluation and stabilizing treatment on an emergency basis only. Given the limited resources, it is not meant to be a substitute for complete medical care. The follow-up doctor you named will receive a copy of your records and all test reports. IT IS IMPORTANT THAT YOU SCHEDULE A FOLLOW-UP APPOINTMENT AND ARE RE-EVALUATED. You should report any new complaints, symptoms, or remaining problems at that time. IT IS IMPOSSIBLE FOR THE EMERGENCY DEPARTMENT TO RECOGNIZE AND TREAT ALL ELEMENTS OF INJURY OR ILLNESS IN A SINGLE VISIT. If you have been referred to a specialist physician, it means that we believe you may have a condition that requires the expertise of a specialist. These physicians work in partnership with the hospital and have agreed to see referred patients in their office for further evaluation. KEEP IN MIND THAT THE SPECIALIST HAS HIS/HER OWN OFFICE POLICIES WHICH MAY REQUIRE PROPER INSURANCE OR PAYMENT UP FRONT BEFORE THE SPECIALIST WILL SEE YOU. It is your responsibility to call the specialist physician to make an appointment. We do not have the ability to refer patients to specialists/physicians that work with specific insurance companies. Please be advised that all financial charges or billing practices are determined by that practice, not the hospital. If your insurance company requires that you see a specialist from their approved list, it is your responsibility to contact your insurance company to make those arrangements. It is also your responsibility to follow any other requirements of your insurance company necessary to obtain coverage for claims submitted. We will bill your insurance; however, you are responsible today for any co-pay amounts. You will receive a separate bill for any services you may have received including: emergency, radiology, or pathology physicians. Patient Name:VANE MARI I have received this information and was given the opportunity to ask questions. Patient/Grounds Maintenance Worker Name: Patient/Grounds Maintenance Worker Signature: Relationship to Patient: Clinician/Hospital Grounds Maintenance Worker Signature: Please Provide a Telephone Number Where You Can Be Reached: Is it Permissible To Leave a Message? Date: Electronically signed by Eileen, Trinidad Conversion Human Resources Records Clerk Cerner at 11/05/2022 8:23 PM CDT documented in this encounter Plan of Treatment Not on file documented as of this encounter Visit Diagnoses Not on filedocumented in this encounter Care Teams Funding Coordinator Relationship Specialty Start Date End Date Keeley Gomez, FAN BLADE ALIGNER [address] [place] [address] PCP - General Family Medicine 06/11/23 documented as of this encounter
--- OUTSIDE RECORDS SUMMARY | 2025-02-27 22:37 | XMS_ITS | Encounter Summary ---
Author Organization [employer] ([place], [place], [place], [place]) Address [address] [place] [address] Care Team Providers Care Resizer Operator Name Role Phone JasonNell Valarie FITZPATRICK Primary Care Provider [phone]- [phone] Encounter Details Date Type Department Care Team (Late st Contact Info) Description 05/21/2021 Transcribed Document [facility] [place] Family [place] [address] ProviderTylor MD [address] [place] [address] Social History Tobacco Use Types [...] Conversion Note - Historical ProviderMD - 05/21/2021 3:21 PM CDT [place] Violence Assessment Entered On: 05/21/2021 18:03 EDT Performed On: 05/21/2021 18:01 EDT by Anna Sen RN Bro[place] Violence Assessment Bro[place] Violence Checklist of Symptoms : None Broset Violence Symptoms Subtotal : 0 Broset Violence Symptoms Indicator : Low risk (0) Anna Sen RN - 05/21/2021 18:01 EDT documented in this encounter Plan of Treatment Not on file documented as of this encounter Visit Diagnoses Not on filedocumented in this encounter Care Teams Resizer Operator Relationship Specialty Start Date End Date Nell Gomez, LEAD DEVELOPER [address] [place] [address] PCP - General Family Medicine 06/11/23 documented as of this encounter
--- OUTSIDE RECORDS SUMMARY | 2025-02-27 22:37 | XMS_ITS | Encounter Summary ---
Author Organization [employer] ([place], [place], [place], [place]) Address [address] [place] [address] Care Team Providers Care Mailing Section Clerk Name Role Phone JasonNell Valarie FITZPATRICK Primary Care Provider +1- [phone] Encounter Details Date Type Department Care Team (Late st Contact Info) Description 05/21/2021 Transcribed Document [facility] [place] Family [place] [address] ProviderTylor MD [address] [place] [address] Social History Tobacco Use Types [...] Tylor ProviderMD - 05/21/2021 3:21 PM CDT [place] Suicide Severity Rating Scale (C-SSRS) Entered On: 05/21/2021 18:03 EDT Performed On: 05/21/2021 18:03 EDT by Anna Sen RN [place] Suicide Severity Rating Scale (C-SSRS) CSSRS Past Month Wish to be : No CSSRS Past Month Suicidal Thoughts : No CSSRS Lifetime Suicide Behavior : No Suicide Severity Rating Score : 0 Suicide Severity Rating : No Additional Care Required at this time Anna Sen RN - 05/21/2021 18:03 EDT Electronically signed by Eileen [facility] Conversion Cpc Cerner at 11/05/2022 8:18 PM CDT documented in this encounter Plan of Treatment Not on file documented as of this encounter Visit Diagnoses Not on filedocumented in this encounter Care Teams Mailing Section Clerk Relationship Specialty Start Date End Date Nell Gomez, INSPECTOR HEATING AND REFRIGERATION [address] [place] [address] PCP - General Family Medicine 06/11/23 documented as of this encounter
--- OUTSIDE RECORDS SUMMARY | 2025-02-27 22:37 | XMS_ITS | Encounter Summary ---
Author Organization [employer] ([place], [place], [place], [place]) Address [address] [place] [address] Care Team Providers Care Die Attaching Machine Tender Name Role Phone Nell Gomez Valarie FITZPATRICK Primary Care Provider +1- [phone] Encounter Details Date Type Department Care Team (Late st Contact Info) Description 05/21/2021 Transcribed Document [facility] [place] Family Medicine [facility] [place] [address] ProviderTylor MD [address] [place] [address] Social History Tobacco Use Types Packs/Day [...] ProviderMD - 05/21/2021 3:21 PM CDT ED Triage Entered On: 05/21/2021 15:32 EDT Performed On: 05/21/2021 15:28 EDT by FRENCH LOPEZ RN ED Triage Across the Room Chief Complaint : Pt presents with abdominal pain. Recurrent abdominal pain x 2 weeks. Nauseated. Has followed up with her PCP who has referred her to gastro. Has not followed up yet. Triage Date/Time : 05/21/2021 15:28 EDT FRENCH LOPEZ RN - 05/21/2021 15:28 EDT DCP GENERIC CODE Tracking Acuity : 3 - Urgent Tracking Group : [facility] ED FRENCH LOPEZ RN - 05/21/2021 15:28 EDT Mode of Arrival : Ambulatory Transported to ED by : Walk in To Room Via : Ambulate Accompanied By : Unaccompanied ED Vital Signs : Document Height & Weight : Document ED Allergies : Document ED Reason for Visit : Document FRENCH LOPEZ RN - 05/21/2021 15:28 EDT Infectious Disease History Does patient have symptoms of COVID-19? : No Has the Patient Been Tested for COVID-19 in the last 14 days? : No, Patient stated Does the Patient state known exposure to a COVID-19 positive case in the last 14 days? : No Patient Vaccinated for COVID-19 : Fully vaccinated FRENCH LOPEZ RN - 05/21/2021 15:28 EDT Infectious Disease Risk Screening Grid Cough < 2 wks of unknown origin : NO Cough > 2 weeks : NO Blood in Sputum : NO Fever or self-reported Fever : NO Rash of unknown origin : NO Headache : NO Stiff neck : NO Night Sweats : NO Unexplained Weight Loss : NO Diarrhea (3 episode per day) : NO FRENCH LOPEZ RN - 05/21/2021 15:28 EDT Physical contact outside [place] in the last 30 days : No Hospitalized in Foreign Country : No Infectious Disease History : None INF Disease TB Screening Calc : 0 INF Disease Recent Travel Calc : 0 FRENCH LOPEZ RN - 05/21/2021 15:28 EDT Vital Signs ED Temperature Source : Oral Temperature Mode : Fahrenheit Temperature, Fahrenheit : 97.8 Deg F Clinical Temperature, C : 36.6 Deg C Oxygen Therapy Mode : Room air Peripheral Pulse Rate : 85 bpm Respiratory Rate : 18 Breaths/Min Systolic Blood Pressure : 118 mmHg Diastolic Blood Pressure : 80 mmHg Oxygen Saturation : 97 % FRENCH LOPEZ RN - 05/21/2021 15:28 EDT Allergy (As Of: 05/21/2021 15:32:53 EDT) Allergies (Active) No Known Allergies Estimated Onset Date: Unspecified ; Created By: FRENCH LOPEZ RN; Reaction Status: Active ; Category: Drug ; Substance: No Known Allergies ; Type: Allergy ; Updated By: FRENCH LOPEZ RN; Reviewed Date: 05/21/2021 15:28 EDT Diagnosis Control ED (As Of: 05/21/2021 15:32:53 EDT) Diagnoses(Active) Abdominal pain Date: 05/21/2021 ; Diagnosis Type: Reason For Visit ; Confirmation: Complaint of ; Clinical Dx: Abdominal pain ; Classification: Medical ; Clinical Service: Emergency medicine ; Code: PNED ; Probability: 0 ; Diagnosis Code: [id number] ED Height and Weight Height Source : Stated Height Entry Format : [place] Height, Feet : 5 ft(Converted to: 152 cm, 60 Inch) Height, Inches : 8 Inch(Converted to: 0 ft 8 Inch, 20.32 cm) Clinical Height : 172.72 cm Weight Source, ED : Critical estimated dosing weight Weight Entry Format : [place] Weight, Pounds : 120 lb Clinical Dosing Weight : 54.55 kg Body Surface Area (BSA) : 1.65 m2 Body Mass Index : 18.3 kg/m2 (LOW) [place] Body Weight (IBW) : 63.45 kg FRENCH LOPEZ RN - 05/21/2021 15:28 EDT documented in this encounter Plan of Treatment Not on file documented as of this encounter Visit Diagnoses Not on filedocumented in this encounter Care Teams Die Attaching Machine Tender Relationship Specialty Start Date End Date Nell Gomez, MOTOR GENERATOR SET OPERATOR [address] [place] [address] PCP - General Family Medicine 06/11/23 documented as of this encounter
--- OUTSIDE RECORDS SUMMARY | 2025-02-27 22:37 | XMS_ITS | Encounter Summary ---
Author Organization [employer] ([place], [place], [place], [place]) Address [address] [place] [address] Care Team Providers Care Rails Developer Name Role Phone JasonNell Valarie FITZPATRICK Primary Care Provider [phone]- [phone] Encounter Details Date Type Department Care Team (Late st Contact Info) Description 05/21/2021 Transcribed Document [facility] [place] Family Medicine [facility] [place] [address] ProviderTylor MD [address] [place] [address] Social History Tobacco Use Types Packs/Day [...] Conversion Note - Tylor ProviderMD - 05/21/2021 8:23 PM CDT ED POC - URINE HCG Entered On: 05/21/2021 20:23 EDT Performed On: 05/21/2021 20:23 EDT by Radha Whelan PARAMEDIC Point of Care Urine HCG HCG Result : Negative Internal Control Line Present : Yes Internal Control Background Clear : Yes Radha Whelan PARAMEDIC - 05/21/2021 20:23 EDT documented in this encounter Plan of Treatment Not on file documented as of this encounter Visit Diagnoses Not on filedocumented in this encounter Care Teams Rails Developer Relationship Specialty Start Date End Date Nell Gomez, DEWER [address] [place] [address] PCP - General Family Medicine 06/11/23 documented as of this encounter
--- OUTSIDE RECORDS SUMMARY | 2025-02-27 22:37 | XMS_ITS | Encounter Summary ---
Author Organization [employer] ([place], [place], [place], [place]) Address [address] [place] [address] Care Team Providers Care Animal Shelter Supervisor Name Role Phone JasonNell Valarie FITZPATRICK Primary Care Provider +1- [phone] Encounter Details Date Type Department Care Team (Late st Contact Info) Description 05/21/2021 Transcribed Document [facility] [place] Family Medicine [facility] [place] [address] ProviderTylor MD [address] [place] [address] Social History Tobacco Use Types Packs/Day [...] Note - Tylor Martinez MD - 05/21/2021 11:06 PM CDT ED Discharge Entered On: 05/21/2021 23:06 EDT Performed On: 05/21/2021 23:06 EDT by RADHA MENJIVAR RN Discharge Process Patient Disposition : Discharge Personal Belongings With Patient : Yes Patient Education Completed : Yes Teaching Evaluation : Verbalizes understanding IV Discontinued : Yes Nursing Documentation Completed : Yes RADHA MENJIVAR RN - 05/21/2021 23:06 EDT ED Discharge Discharge To : Home with ambulatory/outpatient follow-up Mode Of Departure : Ambulatory Accompanied By : Friend Discharge Instructions Reviewed With, Opportunity For Questions Given : Patient Prescriptions Given to Patient : Electronically sent Number of Prescriptions Given : 2 RADHA MENJIVAR RN - 05/21/2021 23:06 EDT Electronically signed by Trinidad Arellano Conversion [employer] Cutter William at 11/05/2022 8:08 PM CDT documented in this encounter Plan of Treatment Not on file documented as of this encounter Visit Diagnoses Not on filedocumented in this encounter Care Teams Animal Shelter Supervisor Relationship Specialty Start Date End Date Nell Gomez, INDUSTRIAL SERVICES WORKER [address] [id number] PCP - General Family Medicine 06/11/23 documented as of this encounter
--- OUTSIDE RECORDS SUMMARY | 2025-02-27 22:37 | XMS_ITS | Encounter Summary ---
Author Organization [employer] ([place], [place], [place], [place]) Address [address] [place] [address] Care Team Providers Care Seismic Interpreter Name Role Phone Keeley Gomez LENS INSERTER Primary Care Provider +1- [phone] Encounter Details Date Type Department Care Team (Late st Contact Info) Description 05/21/2021 Transcribed Document [facility] [place] Family Medicine [facility] [place] [address] ProviderTylor MD [address] [place] [address] Social History Tobacco Use Types [...] Conversion Note - Tylor ProviderMD - 05/21/2021 10:30 PM CDT [address] [place], [place] [id number] PERSON INFORMATION Name VANE MARI Age 20 Years 2000 Sex Female Language Uruguayan PCP KEELEY GOMEZ, LOCKER ROOM CLERK-FAM Marital Status Single Med Service Emergency Medicine Acct# Arrival 05/21/2021 15:21:00 Visit Reason Abdominal pain; PT HAS SMA AND SHE STATES ITS TEARING HER STOMACH UP Acuity 3 - Urgent LOS 000 07:09 Depart Date: 00:00 AM Address: [address] [facility] [address] Comment: PROVIDER INFORMATION Provider Role Assigned Unassigned DIGNA DICKERSON MD-EM[facility] ED Physician 05/21/2021 17:55:38 Anna Sen, SEBD TEACHER Nurse 05/21/2021 17:57:51 05/21/2021 19:25:17 SHANTANU CHAVEZ DO ED Physician 05/21/2021 19:04:12 RADHA MENJIVAR, SEBD TEACHER Nurse 05/21/2021 19:25:18 DIAGNOSIS Abdominal pain PHYS DOC NOTES VITALS INFORMATION Vital Sign Triage Latest Temp Source Oral Oral Temp Mode Fahrenheit Fahrenheit Temp Fahrenheit 97.8 Deg F 97.8 Deg F Temp Celsius 02 Sat 97 % 97 % Respiratory Rate 18 Breaths/Min 18 Breaths/Min Peripheral Pulse Rate 85 bpm 85 bpm Apical Heart Rate Blood Pressure 118 mmHg / 80 mmHg 118 mmHg / 80 mmHg Comment: MEDICAL INFORMATION Allergy Info: No Known Allergies Medications: Comment: DISCHARGE INFORMATION Discharge Disposition: Discharge Location: PATIENT EDUCATION INFORMATION Instructions: Abdominal Pain, Adult Follow up: With: Address: When: ERI MARQUEZ [facility], [address], [place] [address] Business (1) Within 2 to 3 days With: Address: When: [place] [address] [place] [address] Business (1) Within 2 to 3 days Comment: Electronically signed by Eileen [facility] Conversion [place] [employer] Cerner at 11/05/2022 8:15 PM CDT documented in this encounter Plan of Treatment Not on file documented as of this encounter Visit Diagnoses Not on filedocumented in this encounter Care Teams Seismic Interpreter Relationship Specialty Start Date End Date Keeley Gomez, LENS INSERTER [address] [place] [address] PCP - General Family Medicine 06/11/23 documented as of this encounter
[2025-02-27 22:38] VITALS: BP 122/87; PULSE 92; RESP 16; TEMP 36.6; O2SAT 100; BMI 17.2
--- OUTSIDE RECORDS SUMMARY | 2025-02-27 22:38 | XMS_ITS | Clinical Summary ---
Author Organization [facility] Address [address] [place] [address] Care Team Providers Care Genomics Scientist Name Role Phone Nell Gomez Leanne Primary Care Provider Allergies No known active allergies Medications PARoxetine (PAXIL) 20 MG tablet TAKE ONE TABLET ONCE DAILY EVERY MORNING 0 04/21/20 19 Active hydrOXYzine (ATARAX) 25 MG tablet Take 1 tablet by mouth 3 (Three) Times a Day As Needed for Itching. Active fluticasone (FLONASE) 50 MCG/ACT nasal spray 2 sprays by Each Nare route Daily for 30 days. 16 g 1 06/12/20 21 Active Additional Information Patient taking differently:2 spray Each NareAs Needed, Reported on 09/18/2021 Lidocaine Viscous HCl (XYLOCAINE) 2 % solution Take 5 mL by mouth Every 3 (Three) Hours As Needed for Moderate Pain . 100 mL 06/11/20 21 Active polyethylene glycol (MiraLax) 17 GM/SCOOP powderIndications: Chronic idiopathic constipation Take 17 g by mouth Daily. Mix in 8 oz of any liquid once daily 1530 g 3 02/08/20 22 Active promethazine (Phenergan) 25 MG suppositoryIndicat ions:Nausea and vomiting, unspecified vomiting type Insert 1 suppository into the rectum Every 6 (Six) Hours As Needed for Nausea or Vomiting. 21 suppository 02/27/20 22 Active amitriptyline (ELAVIL) 25 MG tablet 08/12/20 22 Active Cariprazine HCl (Vraylar) 1.5 MG capsule capsule Take 1 capsule by mouth Daily. Active promethazine (PHENERGAN) 25 MG tabletIndications: Nausea and vomiting, unspecified vomiting type Take 1 tablet by mouth Every 6 (Six) Hours As Needed for Nausea or Vomiting. 21 tablet 01/28/20 23 Active ondansetron ODT (Zofran ODT) [address] 1 tablet on the tongue Every 8 (Eight) Hours As Needed for Nausea or Vomiting. 30 tablet 01/28/20 23 Active omeprazole (priLOSEC) 20 MG capsuleIndications :Dysphagia, unspecified type Take 1 capsule by mouth 2 (Two) Times a Day. 30 minutes prior to first meal and 30 minutes prior to last meal 180 capsule 01/28/20 23 Active dicyclomine (BENTYL) 20 MG tabletIndications: Epigastric pain Take 1 tablet by mouth Every 8 (Eight) Hours As Needed (abdominal pain). 90 tablet 01/28/20 23 Active ondansetron ODT (ZOFRAN-ODT) [address] 1 tablet on the tongue 4 (Four) Times a Day As Needed for Nausea or Vomiting. 15 tablet 05/29/20 23 Active methocarbamol (ROBAXIN) 750 MG tablet Take 1 tablet by mouth 3 (Three) Times a Day As Needed for Muscle Spasms. 12 tablet 03/20/20 24 Active ketorolac (TORADOL) 10 MG tablet Take 1 tablet by mouth Every 6 (Six) Hours As Needed for Moderate Pain. 12 tablet 03/20/20 24 Active Active Problems Problem Noted Date Diagnosed Date History of abdominal pain 06/24/2021 Hypophosphatemia 06/11/2021 Superior mesenteric artery syndrome 06/07/2021 Severe malnutrition 06/07/2021 SMAS (superior mesenteric artery syndrome) 06/07 Resolved Problems Problem Noted Date Diagnosed Date Resolved Date Intractable vomiting 06/12/2021 021 Hypomagnesemia 06/12/2021 06/13/2021 Family History Medical History Relation Name Comments Hyperlipidemia Father Hypertension Father Obesity Father Colon polyps Maternal Grandmother Arthritis Mother Thyroid disease Mother Colon polyps Paternal Grandmother Relation Name Status Comments Father Alive Maternal Grandmother Mother Alive Paternal Grandmother Social History Tobacco Use Types Packs/Day Years Used Date Smoking Tobacco: Every Day Cigarettes 0.3 3 Smokeless Tobacco: Never Alcohol Use Standard Drinks/Week Comments Not Currently 0 (1 standard drink = 0.6 oz pur e alcohol) Abuse Screen Answer Date Recorded Feels Unsafe at Home or Work/School no 03/27/2024 Feels Threatened by Someone no 01/2024 Does Anyone Try to Keep You From Having Contact with Others or Doing Things Outside Your Home? no 03/27/2024 Physical Signs of Abuse Present no 03/27/2024 Housing Stability Answer Date Recorded Current Living Arrangements Not on file 04/20 Potentially Unsafe Housing Conditions Not on wolfgang e 05/01/2023 Family and Community Support Answer Tico e Recorded Help with Day-to-Day Activities Not on file 05/01/2023 Lonely or Isolated Not on file 05/01/2023 Employment Answer Date Recorded Do you want help finding or keeping work or a ant b? Not on file 05/01/2023 Disabilities Answer Date Recorded Concentrating, Remembering, or Making Decisions Difficulty Not on file 05/01/2023 Doing Errands Independently Difficulty Not on fi le 05/01/2023 Education Answer Date Recorded Help with school or training? 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 Not on file Not on file Last Filed Vital Signs Vital Sign Reading Time Taken Comments Blood Pressure 130/84 03/27/2024 5:44 PM EDT Pulse 89 03/27/2024 5:44 PM EDT Temperature 36.8 C (98.2 F) 03/27/2024 3:00 PM EDT Respiratory Rate 16 03/27/2024 5:44 PM EDT Oxygen Saturation 100% 03/27/2024 5:44 PM EDT Inhaled Oxygen Concentration - - Weight 65.8 kg (145 lb) 03/27/2024 3:00 PM EDT Height 172.7 cm (5' 8 ) 03/27/2024 3:00 PM EDT Body Mass Index 22.05 03/27/2024 3:00 PM EDT Plan of Treatment Health Maintenance Due Date Last Done Comments Annual Gynecologic Pelvic and Breast Exam 2001 HPV VACCINES (1 - 3-dose series) 2016 MENINGOCOCCAL B VACCINE (1 of 2 - Standard) 2017 ANNUAL PHYSICAL 06/09/2019 HEPATITIS C SCREENING 06/09/2019 Pneumococcal Vaccine 0-49 (1 of 2 - PCV) 2020 TDAP/TD VACCINES (1 - Tdap) 2020 CHLAMYDIA SCREENING 12/19/2023 12/18/2022 COVID-19 Vaccine (2 - season) 2024 INFLUENZA VACCINE 04/20/2025 Insurance [employer] PPO [employer] PPO Advance Directives * CPR (Attempt to Resuscitate) (Latest Code Status on File) Date Activated Date Inactivated Comments 06/12/2021 9:28 AM 06/13/2021 5:14 PM Question Answer Comments Code Status (Patient has no pulse and is not breathing): CPR (Attempt to Resuscitate) Medical Interventions (Patie nt has pulse or is breathing): Full Support * CPR (Attempt to Resuscitate) Date Activated Date Inactivated Comments 06/07/2021 3:10 PM 06/11/2021 6:55 PM Question Answer Comments Code Status (Patient has no pulse and is not breathing): CPR (Attempt to Resuscitate) Medical Interventions (Patie nt has pulse or is breathing): Full Support Level Of Support Discussed With: Patient Care Teams Genomics Scientist Relationship Specialty Start Date End Date Nell Gomez [place] [place] [address] PCP - General Nurse Practitioner 02/07/22
--- OUTSIDE RECORDS SUMMARY | 2025-02-27 22:38 | XMS_ITS | Referral Summary ---
Author Organization [employer] ([place], [place], [place], [place]) Address [address] [place] [address] Care Team Providers Care Gauge Maker Name Role Phone Nell Gomez APRN Primary Care Provider +1- [phone] Allergies No known active allergies Medications omeprazole (PriLOSEC) 20 MG capsule Take 1 capsule (20 mg total) by mouth as needed. Active ondansetron (ZOFRAN-ODT) 4 MG disintegrating tablet Take 1 tablet (4 mg total) by mouth every 8 (eight) hours as needed. Active promethazine (PHENERGAN) 25 MG tablet Take 1 tablet (25 mg total) by mouth every 6 (six) hours as needed. Active lamoTRIgine (LaMICtal) 100 MG tablet Take 1 tablet (100 mg total) by mouth daily. Active OLANZapine (ZyPREXA) 15 MG tablet Take 0.5 tablets (7.5 mg total) by mouth every night as needed. 3 Active traZODone (DESYREL) 50 MG tablet Take 1 tablet (50 mg total) by mouth every night as needed. 3 Active Active Problems Problem Noted Date Diagnosed Date Anxiety 06/10/2023 Depression 06/10/2023 Dizziness 06/10/2023 Duodenum, occlusion by superior mesenteric arter y 06/10/2023 Endometriosis 06/10/2023 PTSD (post-traumatic stress disorder) 06/10/2023 Syncope 06/10/2023 Tachycardia 06/10/2023 Social History Tobacco Use Types Packs/Day Years Used Date Smoking Tobacco: Every Day Cigarettes Smokeless Tobacco: Never Tobacco Cessation:Ready to Q uit: Not Asked; Counseling Given: Not Answered Alcohol Use Standard Drinks/Week Comments Not Currently 0 (1 standard drink = 0.6 oz pur e alcohol) caffeine use Food Insecurity Answer Date Recorded Food run out past 12 months Not on file 07/21 Food did not last past 12 months Not on file 08/08/2023 Employment Answer Date Recorded Help finding and keeping a job Not on file 0 08/08/2023 Family and Community Support Answer Tico e Recorded Help with Day to Day Activities Not on file 08/08/2023 Feeling Lonely or Isolated Not on file 08/08 Educational Attainment Answer Date Darnell rded Speak language other than Cymro at home Not on file 08/08/2023 Want help with school or training Not on file 08/08/2023 Substance Use Answer Date Recorded Used prescription meds for non-medical reasons N ot on file 08/08/2023 Used illegal drugs past 12 months Not on file 08/08/2023 Comments Unknown Sex and Gender Information Value Date Recorded Sex Assigned at Female 01/15/2022 8:57 PM CDT Legal Sex Female 8:57 PM CDT Gender Identity Female 01/15/2022 8:57 PM CDT Sexual Orientation Not on file Last Filed Vital Signs Vital Sign Reading Time Taken Comments Blood Pressure 110/70 12/10/2023 8:39 AM EDT Pulse 79 12/10/2023 8:39 AM EDT Temperature - - Respiratory Rate 16 12/10/2023 8:39 AM EDT Oxygen Saturation 99% 12/10/2023 8:39 AM EDT Inhaled Oxygen Concentration - - Weight 67.6 kg (149 lb) 12/10/2023 8:39 AM EDT Height 170.2 cm (5' 7 ) 12/10/2023 8:39 AM EDT Body Mass Index 23.34 12/10/2023 8:39 AM EDT Plan of Treatment Not on file Insurance BLUE CROSS/BLUE SHIELD Care Teams Gauge Maker Relationship Specialty Start Date End Date Nell Gomez, FOOD SERVICE STEWARD [address] [place] [address] PCP - General Family Medicine 06/11/23
--- OUTSIDE RECORDS SUMMARY | 2025-02-27 22:38 | XMS_ITS | Clinical Summary ---
Author Organization Healthcare Address [address] [place] [address] Care Team Providers Care Conductor/Brakeman Name Role Phone Chris Luisana Peralta APRN Primary Care Provider [phone] Allergies No known active allergies Medications fluticasone (Flonase) 50 MCG/ACT nasal spray Administer 2 sprays into affected nostril(s) 1 (one) time each day. 9 Active hydrOXYzine (Vistaril) 25 MG/ML injection 1 Active levonorgestrel- ethinyl estradiol (Seasonale) 0.15-0.03 MG tablet Take 1 tablet by mouth 1 (one) time each day. 84 tablet 3 1 Active Vraylar 1.5 MG capsule Take 1.5 mg by mouth 1 (one) time each day. 3 Active norgestimate-et hinyl estradiol (Sprintec 28) 0.25-35 MG-MCG tablet Take 1 tablet by mouth 1 (one) time each day. 84 tablet 4 3 Active Active Problems Problem Noted Date Diagnosed Date Bulge of lumbar disc without myelopathy 10/12/19 21 Back pain, chronic 10/04/2020 Radiculopathy 10/04/2020 Dysmenorrhea 09/21/2020 Menorrhagia with irregular cycle 09/21/2020 Depression with anxiety 09/21/2020 Family History Medical History Relation Name Comments Hypertension Father Endometriosis Maternal Cousin 1 Polycystic ovary syndrome Maternal Cousin 2 Endometriosis Maternal Grandmother Polycystic ovary syndrome Maternal Grandmother Endometriosis Mother Endometriosis Mother's Sister 1 Polycystic ovary syndrome Mother's Sister 2 Conversions - Other Paternal Grandfather deep venous thrombosis Relation Name Status Comments Father Maternal Cousin 1 Maternal Cousin 2 Maternal Grandmother Mother Mother's Sister 1 Mother's Sister 2 Paternal Grandfather Social History Tobacco Use Types Packs/Day Years Used Date Smoking Tobacco: Every Day Cigarettes 1 4 Smokeless Tobacco: Never Tobacco Cessation:Ready to Q uit: No; Counseling Given: No Comments:Smokes 1/2 pack per day Alcohol Use Standard Drinks/Week Comments Yes 1 (1 standard drink = 0.6 oz pure alcohol) Alcoholic Drinks/day: Denies alcohol consumption Comments No Sex and Gender Information Value Date Recorded Sex Assigned at Female 02/01/2021 10:19 AM EDT Legal Sex Female 8:07 PM EDT Gender Identity Female 02/01/2021 10:19 AM EDT Sexual Orientation Pansexual 02/01/2021 10 :19 AM EDT Last Filed Vital Signs Vital Sign Reading Time Taken Comments Blood Pressure 121/85 01/08/2023 8:59 AM EDT Pulse 72 12/18/2022 8:43 AM EDT Temperature 36.3 C (97.4 F) 12/18/2022 8:43 AM EDT Respiratory Rate 16 12/18/2022 8:43 AM EDT Oxygen Saturation 98% 12/18/2022 8:43 AM EDT Inhaled Oxygen Concentration - - Weight 60.8 kg (134 lb 0.6 oz) 01/08/2023 8:59 A M EDT Height 170.2 cm (5' 7 ) 12/18/2022 8:43 AM EDT Body Mass Index 20.99 12/18/2022 8:43 AM EDT Plan of Treatment Health Maintenance Due Date Last Done Comments [facility]-Depression Screening 2001 [facility]-HIV Screening 2001 [facility]-Hepatitis C Screening 2001 [facility]-/Child/Adol SDOH Screenings 2001 [facility]-Varicella Vaccines (1 of 2 - 13+ 2-dose series) 2014 HPV Vaccines (1 - 3-dose series) 2016 [facility]- SDOH Screenings 2019 [facility]-Adult SDOH Screenings 2019 [facility]-DTaP,Tdap,and Td Vaccine s (1 - Tdap) 2020 [facility]-Hepatitis B Vaccines (1 of 3 - 19+ 3-dose series) 2020 [facility]-GEQWV-13 Vaccine (2 - 20 24-25 season) 2024 12/14/2020 [facility]-Influenza Vaccine (#1) 2025 [facility]-Pap Smear 12/18/2025 12/18/2022 [facility]-Zoster Vaccines (1 of 2) 2051 [facility]-HIB Vaccines Aged Out No longer e ligible based on patient's age to complete this topic [facility]-Hepatitis A Vaccines Aged Out No longer eligible based on patient's age to complete this topic [facility]-IPV Vaccines Aged Out No longer e ligible based on patient's age to complete this topic [facility]-Pneumococcal Vaccine: Pediatrics (0 to 5 Years) and At-Risk Patients (6 to 49 Years) Aged Out No long er eligible based on patient's age to complete this topic [facility]-Rotavirus Vaccines Aged Out No lo nger eligible based on patient's age to complete this topic Procedures Procedure Name Priority Date/Time Associated Diagnosis Comments PAP TEST - CYTOLOGY Routine 12/18/2022 12:06 PM EDT Encounter for annual routine gynecological examination from Last 3 Months or Most Recently Relevant to Health Maintenance Results * (ABNORMAL) Pap Test (12/18/2022 12:06 PM EDT) Case Report Cytology Case: [id number] Authorizing Provider: Hank Gutierrez MD Collected: 12/18/2022 1206 Ordering Location: Obstetrics & Gynecology Received: 12/19/2022 1114 First Screen: Akanksha Lu Pathologist: Daquan Solares MD Specimen: ThinPrep Pap Test, Liquid-Based Cervical/Vaginal 12/26/2022 2:06 PM EDT [facility] Interpretation LOW GRADE SQUAMOUS INTRAEPITHELIAL LESION (LSIL)(A) 12/26/2022 2:06 PM EDT Medium LAB at 1406 EDT Specimen Adequacy Satisfactory for evaluation; endocervical/hood sformation zone component present. Slide imaged by the ThinPrep Imaging system and selected wynn reviewed then full manual screening. 12/26/2022 2:06 PM EDT [facility] Cervical cytology is a screening test primarily for squamous cancers and precursors and has associated false negative and positive results. New technologies such as liquid based sampling may decrease but will not eliminate all false negative results. Regular screening and follow-up of unexplained clinical signs and symptoms are recommended to minimize false negative results. Please see the ASCCP website (www.asccp.org)fo r followup recommendations. If HPV testing was requested, correlation with the results is suggested (please call Microbiology at [phone] for results). 12/26/2022 2:06 PM EDT [facility] Menstrual Status Unknown 12/27/19 2:06 PM EDT [facility] Contraceptive History Not Applicable 12/26/2022 2:06 PM EDT [facility] Screening Type Routine Screen 2022 2:06 PM EDT [facility] High Risk? No 12/26/2022 2:06 PM EDT [facility] HPV Testing Requested? Request HPV testing if ASCUS or LSIL. 12/26/2022 2:06 PM EDT [facility] Previous Cancer History No 12/26/2022 2:06 PM EDT [facility] Clinical Information Z01.419 - Encounter for annual routine gynecological examination [ICD-10-CM] 12/26/2022 2:06 PM EDT [facility] Swab Vaginal and cervical cytologic material / Unknown Non-blood Collection / Unknown 12/18/2022 12:06 PM EDT 12/19/2022 11:14 AM EDT Hank Gutierrez MD LAB CYTOLOGY ORDERABLES Final R esult [facility] [address] [place] [address] from Last 3 Months or Most Recently Relevant to Health Maintenance Insurance [employer] Care Teams Conductor/Brakeman Relationship Specialty Start Date End Date Luisana Perez APRN [address] [place] [address] PCP - General 12/01/20
--- NOTE | 2025-02-27 22:40 | HMH.EDGENADL ---
Discharge Plan Disposition Patient Disposition: Home, Self-Care Condition: Good Prescriptions Prescriptions: No Action trazodone 50 mg tablet 100 mg PO ONCE buspirone 15 mg tablet 15 mg PO BID Patient Comments: Take one (1) tablet by mouth twice a day for anxiety aripiprazole 10 mg tablet 10 mg PO DAILY Patient Comments: Take one (1) tablet by mouth daily for mood norethindrone (contraceptive) [Anna] 0.35 mg tablet 0.35 mg PO DAILY Patient Comments: TAKE ONE TABLET BY MOUTH ONCE DAILY cyproheptadine 4 mg tablet 8 mg PO HS Qty: 60 6RF Rx Instructions: 2 tablet at 9 PM Ubrelvy 100 mg tablet 100 mg PO ONCE PRN (Reason: migraine headache) Qty: 10 4RF metoprolol succinate 50 mg tablet extended release 24 hr See Rx Instructions .ROUTE .COMPLEX Qty: 90 3RF Dose Instruction: Take 1 tablet by mouth once daily Rx Instructions: Take 1 tablet by mouth once daily Referrals Follow up/Referrals: Nell Gomez APRN [Primary Care Provider, Medical] - See instructions Activity Restrictions/Add. Instructions Additional Instructions/Restrictions: Continue taking your daily migraine medications. Call neurology if needed. Otherwise return to the emergency department for any acute or worsening symptoms Clinical Impressions Clinical Impression: Migraine Print Language Print Language: Omani Discharge ED Provider: Zully Colon Adult HPI General Chief complaint: Headache Stated complaint: Severe Migraine Time Seen by Provider: 02/27/25 22:40 History of Present Illness HPI narrative: Patient is a 24-year-old female with a past medical history of migraines who takes a daily migraine medicine and follows with neurology who presented to the emergency department with a headache. Patient states that her headache is global gradual onset. Patient states that her headache is currently an 8 out of 10, patient has photophobia. Patient denies any numbness or weakness. Patient states that she took Phenergan at home that did not resolve her symptoms. Patient states that she has never had to be admitted in the past for her migraines. Patient denies any vomiting but does report some nausea. Patient denies any abdominal pain. Patient denies any chest pain or shortness of breath. Related Data Home Medications ?Medication ?Instructions ?Recorded ?Confirmed trazodone 50 mg tablet 100 mg PO ONCE 07/28/24 02/02/25 aripiprazole 10 mg tablet 10 mg PO DAILY 02/02/25 02/02/25 buspirone 15 mg tablet 15 mg PO BID 02/02/25 02/02/25 norethindrone (contraceptive) 0.35 0.35 mg PO DAILY 02/02/25 02/02/25 mg tablet (Anna) Previous Rx's ?Medication ?Instructions ?Recorded metoprolol succinate 50 mg See Rx Instructions .Route 07/29/24 tablet,extended release 24 hr .COMPLEX #90 tabs cyproheptadine 4 mg tablet 8 mg (2 x 4 mg) PO HS #60 tabs 02/02/25 ubrogepant 100 mg tablet (Ubrelvy) 100 mg PO ONCE PRN migraine 02/02/25 headache #10 tabs Allergies Allergy/AdvReac Type Severity Reaction Status Date / Time No Known Allergies Allergy Verified 02/02/25 08:34 [facility] Disclaimer: The information contained in this section may have been updated after the patient was seen, as this information can be updated by other users. Medical History Migraine Inappropriate sinus tachycardia Dizziness Syncope Chest pain Palpitations Hematuria Hypertension Surgical History History of esophagogastroduodenoscopy (EGD) History of endometrial ablation Family History Other Family history of cancer Social History Smoking Status: Never smoker second hand exposure: Yes alcohol intake: current substance use type: denies use current occupational status: other Travel in the last 8 weeks?: None Have you lived/traveled outside [place] in past 30 days?: No Contact w/someone who lives/traveled outside US past 30 days?: No Exposure to someone with infectious disease in past 14 days?: No Do you have a fever (greater than 100.4 F or 38 C)?: No Have you tested positive for COVID-19?: No Exposed to someone with COVID-19 in past 14 days?: No Do you have a sore throat?: No Do you have a cough?: No Do you have any weakness?: No Do you have any diarrhea?: No Are you experiencing any unusual bleeding?: No Do you have any muscle aches/pain?: No Do you have any abdominal pain?: No Are you experiencing loss of taste or smell?: No Other Medical History Have you received the Flu Vaccine for this season: No Have you received the Pneumonia Vaccine: No ROS Obtained: Yes All systems reviewed & no additional complaints except as documented and Yes Systems reviewed as appropriate & no additional complaints except as documented Physical Exam General General appearance: alert and in no apparent distress Head Head exam: atraumatic, normocephalic and normal inspection Eye Eye exam: Present normal appearance, PERRL and EOMI; Absent scleral icterus ENT ENT exam: Present normal exam and normal external ear exam Neck Neck exam: Present normal inspection and full ROM Chest Chest inspection: Present normal inspection and symmetric chest wall rise Respiratory Respiratory exam: Present normal lung sounds bilaterally; Absent respiratory distress or wheezes Cardiovascular Cardiovascular exam: Present regular rate, normal rhythm and normal heart sounds Abdominal Exam Abdominal exam: Present soft and distention; Absent tenderness, guarding or rebound Extremities Exam Extremities exam: Present normal inspection and full ROM Back Exam Back exam: Present normal inspection and full ROM Neurological Exam Neurological exam: Present alert, oriented X3 and other (5/5 strength in bilateral upper extremities and bilateral lower extremities, sensation intact, photophobic, no visual changes) Psychiatric Psychiatric exam: Present normal affect and normal mood Skin Skin exam: Present warm and dry Medical Decision Making Medical Records Medical records reviewed: Yes I reviewed the patient's medical records. Screening: Per USPSTF and CDC recommendations, given the prevalence of disease in our region, it is our hospital?s policy to screen for HIV and viral Hepatitis for all patients aged 18 and over and those with ongoing risk factors. [place] Inquiry Pt receiving controlled substance: No Vital Signs: 02/27/25 22:37 02/27/25 22:38 02/27/25 23:30 Temperature 97.8 F 98 F Temperature Source Oral Oral Pulse Rate 70 Pulse Rate [Radial] 92 H Pulse Rate [Right] 64 92 H Respiratory Rate 18 16 Blood Pressure 106/68 L Blood Pressure [Right Arm] 150/84 H 122/87 Blood Pressure Mean [Right Arm] 106 98 Blood Pressure Position [Right Arm] Sitting 02 Sat by Pulse Oximetry 99 100 96 Oxygen Delivery Method Room Air Room Air 02/28/25 00:00 Temperature Temperature Source Pulse Rate 68 Pulse Rate [Radial] Pulse Rate [Right] Respiratory Rate Blood Pressure 106/76 L Blood Pressure [Right Arm] Blood Pressure Mean [Right Arm] Blood Pressure Position [Right Arm] 02 Sat by Pulse Oximetry 97 Oxygen Delivery Method Lab Data Lab results reviewed: Yes I reviewed the patient's lab results. Lab Results 02/27/25 22:48: WBC 8.4, RBC 4.70, Hgb 13.3, Hct 39.8, MCV 84.7, MCH 28.3, MCHC 33.4, RDW 12.6, Plt Count 314, MPV 10.6 H, Neut % (Auto) 48.9, Lymph % (Auto) 40.4, Graham % (Auto) 7.0, Eos % (Auto) 2.5, Baso % (Auto) 1.0, Neut # (Auto) 4.1, Lymph # (Auto) 3.4, Graham # (Auto) 0.6, Eos # (Auto) 0.2, Baso # (Auto) 0.1, Sodium 138, Potassium 3.9, Chloride 103, Carbon Dioxide 26, Anion Gap 12.9, BUN 16, Creatinine 0.80, Estimated Creat Clear 94, Estimated GFR 89, Est GFR ( Amer) 108, Glucose 88, Calcium 10.2, Total Bilirubin 0.4, AST 33, ALT 26, Alkaline Phosphatase 60, Total Protein 8.0, Albumin 5.1 H, Globulin 2.9, Albumin/Globulin Ratio 1.8, Serum HCG, Qual Negative, HCV Ab AUGUSTUS w/Rflx PCR Qn Negative, HIV Ag/Ab Combo Qual Negative 02/27/25 22:48 02/27/25 22:48 Orders (Tests/Meds): ED MEDICATIONS Discontinued Medications Generic Name Dose Route Start Last Admin Trade Name Freq PRN Reason Stop Dose Admin Diphenhydramine HCl 25 mg 02/27/25 22:52 02/27/25 23:10 Diphenhydramine 50mg/Ml Vial IV 02/27/25 22:53 25 mg ONCE ONE Administration Sodium Chloride 1,000 mls @ 999 mls/hr 02/27/25 22:52 02/27/25 23:11 Sod Chlor 0.9% 1000ml Bag IV 02/27/25 23:52 999 mls/hr .Q1H1M ONE Administration Magnesium Sulfate 2 gm in 50 mls @ 50 mls/hr 02/27/25 22:52 02/27/25 23:11 Magnesium Sulfate 2gm/50ml Premix IV 02/27/25 23:51 50 mls/hr ONCE ONE Administration Prochlorperazine Edisylate 10 mg 02/27/25 22:52 02/27/25 23:10 Prochlorperazine 10mg/2ml Vial IV 02/27/25 22:53 10 mg ONCE ONE Administration ORDERS Category Date Time Status CBC w/Auto Diff [Complete Blood Count Auto Diff] Stat Lab 02/27/25 22:48 Completed CMP [Comprehensive Metabolic Panel] Stat Lab 02/27/25 22:48 Completed HCG Qualitative, Serum Stat Lab 02/27/25 22:48 Completed HIV Combo Stat Lab 02/27/25 22:48 Completed Hepatitis C Ab Qual. W/ RFX Stat Lab 02/27/25 22:48 Completed Medical Decision Narrative: Patient is a 24-year-old female with a past medical history of migraines who presented to the emergency department with a headache that was gradual onset and started today. On exam, patient was hemodynamically stable with unremarkable vital signs. Differential includes but not limited to: Migraine, tension headache, intracranial pathology, complex migraine, electrolyte abnormalities, , amongst others Patient reported that her headache was typical in nature of her migraines. Patient has follow-up with neurology. Patient's headache was not acute onset. At this time I felt that it was appropriate to treat patient symptomatically, CT imaging was not felt to be indicated at this time. Labs were reviewed and interpreted by myself, CBC showed no leukocytosis, hemoglobin stable. CMP unremarkable. negative. Patient was given IV fluids, Benadryl, Compazine as well as Toradol as well as IV magnesium. Patient's headache started out as an 8 out of 10 on reassessment, patient stated that her headache was a 3 out of 10 tolerable in nature and patient was able to sleep for an hour. At this time, patient felt that her headache was enough improved that she wished to go home. At this time I felt this was appropriate. Return precautions were discussed and patient was advised to follow-up with her neurologist or return to the emergency department for any acute or worsening symptoms. Critical Care Critical Care Time Critical Care Time: No
[2025-02-27 23:03] LABS: Hematocrit 39.8 % (37.0-47.0); Hemoglobin 13.3 g/dL (12.2-16.2); Immature Granulocytes % 0.2 %; Mean Corpuscular HGB Conc 33.4 g/dL (31.8-35.4); Mean Corpuscular Hemoglobin 28.3 pg (27.0-31.2); Mean Corpuscular Volume 84.7 fl (81-99); Nucleated Red Blood Cells % 0 %; Platelet Count 314 K/mm3 (142-424); Red Blood Count 4.70 M/mm3 (4.20-5.40); Red Cell Distribution Width-SD 39.1 fL; White Blood Count 8.4 K/mm3 (4.8-10.8)
--- NOTE | 2025-02-27 23:08 | PC.NURSE ---
Triage that was put in by this RN is incorrect, disregard triage and assessment per this RN
[2025-02-27] MEDS: PROCHLORPERAZINE 10MG/2ML VIAL 10 MG IV (23:10)
[2025-02-27] MEDS: 0.9 % SODIUM CHLORIDE 1000ML 1,000 ML 999 ML IV (23:11)
[2025-02-27] MEDS: MAGNESIUM SULFATE IN WATER 2 GM/50 ML PIGGYBACK IV (23:11)
[2025-02-27 23:14] LABS: Albumin Level 5.1 g/dl (3.5-5.0); Chloride 103 mmol/L (98-107); Sodium 138 mmol/L (136-145)
[2025-02-27 23:15] LABS: Potassium 3.9 mmoL/L (3.5-5.1)
[2025-02-27 23:17] LABS: Alanine Aminotransferase 26 U/L (12-78); Anion Gap 12.9 mEq/L (5-15); Aspartate Amino Transferase 33 U/L (14-36); Blood Urea Nitrogen 16 mg/dl (7-17); Carbon Dioxide 26 mmol/L (22.0-30.0); Creatinine Clearance Estimated 94 mL/min (50-200); Creatinine,Serum 0.80 mg/dl (0.52-1.04); Estimated Glomerular Filt Rate 89 ml/min (>60); GFR (African American) 108 ML/MIN (>60)
[2025-02-27 23:18] LABS: Albumin/Globulin Ratio 1.8 (1.1-1.8); Alkaline Phosphatase 60 U/L (38-126); Bilirubin,Total 0.4 mg/dl (0.2-1.3); Calcium 10.2 mg/dl (8.4-10.2); Globulin 2.9 g/dL (1.3-3.2); Glucose 88 mg/dl (74-100); Total Protein,Serum 8.0 g/dl (6.3-8.2)
[2025-02-27 23:21] LABS: HCG Qualitative, Serum Negative (Negative)
[2025-02-27 23:30] VITALS: BP 106/68; PULSE 70; O2SAT 96
[2025-02-28] VITALS: BP 106/76; PULSE 68; O2SAT 97
[2025-02-28 00:06] LABS: Hepatitis C Ab Qual. W/ RFX NEGATIVE (Negative)
[2025-02-28 00:15] VITALS: PULSE 69; O2SAT 100
[2025-02-28 00:38] VITALS: BP 106/76; PULSE 68; RESP 18; TEMP 36.6; O2SAT 97
== END 2025-02-28 00:39 | disposition home or self-care (01) ==
PROVIDERS: Emergency Provider Student in an Organized Health Care Education/Training Program; PCP Nurse Practitioner
DX: G43.909 Migraine, unspecified, not intractable, without status migrainosus (principal); I10 Essential (primary) hypertension
CPT/HCPCS: 80053; 84703; 85025; 86803; 87389; 96360; 96365; 96375; 99285; J0780; J1200; J3475; J7030

== ENCOUNTER 2025-05-27 06:17 | Emergency (ER) | payer BC, SELFPAY ==
[2025-05-27] VITALS (7 sets, daily range): BP systolic 97–109; BP diastolic 53–68; PULSE 58–76; RESP 16; TEMP 36.6–36.7; O2SAT 95–100; BMI 25.2
--- NOTE | 2025-05-27 06:22 | HMH.EDGENADL ---
Discharge Plan Disposition Patient Disposition: Home, Self-Care Condition: Good Prescriptions Prescriptions: No Action buspirone 15 mg tablet 15 mg PO BID Patient Comments: Take one (1) tablet by mouth twice a day for anxiety aripiprazole 10 mg tablet 10 mg PO DAILY Patient Comments: Take one (1) tablet by mouth daily for mood Ubrelvy 100 mg tablet 100 mg PO ONCE PRN (Reason: migraine headache) Qty: 10 4RF celecoxib 200 mg capsule 200 mg PO mirtazapine 30 mg tablet 30 mg PO HS Patient Comments: take ONE half TO ONE tablet BY MOUTH AT bedtime as needed FOR SLEEP sertraline 25 mg tablet 25 mg PO DAILY Patient Comments: TAKE 1 TABLET BY MOUTH every morning Qulipta 60 mg tablet 60 mg PO DAILY Qty: 60 4RF Qulipta 60 mg tablet 0RF metoprolol succinate 50 mg tablet extended release 24 hr See Rx Instructions .ROUTE .COMPLEX Qty: 90 3RF Dose Instruction: Take 1 tablet by mouth once daily Rx Instructions: Take 1 tablet by mouth once daily Referrals Follow up/Referrals: Nell Gomez APRN [Primary Care Provider, Medical] - See instructions Activity Restrictions/Add. Instructions Additional Instructions/Restrictions: Stay well-hydrated. Please follow up with your primary care provider in 2-3 days. Please return to ED if your symptoms worsen, change in location, change in severity, new symptoms develop or if you become concerned for your health. Clinical Impressions Clinical Impression: Migraine Qualifiers: Status migrainosus presence: with status migrainosus Intractability: intractable Print Language Print Language: German Discharge ED Provider: Jean Francisco General Adult HPI <Jean Francisco MD - Last Filed: 05/27/25 06:41> General Chief complaint: Headache Stated complaint: migraine, vomiting Time Seen by Provider: 05/27/25 06:22 History of Present Illness HPI narrative: 24-year-old male withExtensive past medical history including migraines presents for migraine headache. She reports it is similar to her normal headache but a bit more sharp and it is affecting her right eye instead of her left eye. Has been ongoing for the last couple of days. She tried to take medication at home but it did not help/she threw them up. She reports nausea and vomiting, reports sensitivity to light and noise. Related Data Home Medications ?Medication ?Instructions ?Recorded ?Confirmed aripiprazole 10 mg tablet 10 mg PO DAILY 02/02/25 05/04/25 buspirone 15 mg tablet 15 mg PO BID 02/02/25 05/04/25 celecoxib 200 mg capsule 200 mg PO 05/04/25 05/04/25 mirtazapine 30 mg tablet 30 mg PO HS 05/04/25 05/04/25 sertraline 25 mg tablet 25 mg PO DAILY 05/04/25 05/04/25 Previous Rx's ?Medication ?Instructions ?Recorded metoprolol succinate 50 mg See Rx Instructions .Route 07/29/24 tablet,extended release 24 hr .COMPLEX #90 tabs ubrogepant 100 mg tablet (Ubrelvy) 100 mg PO ONCE PRN migraine 02/02/25 headache #10 tabs atogepant 60 mg tablet (Qulipta) 60 mg PO DAILY #60 tabs 05/04/25 Allergies Allergy/AdvReac Type Severity Reaction Status Date / Time No Known Allergies Allergy Verified 05/04/25 14:19 [facility] <Jean Francisco MD - Last Filed: 05/27/25 06:41> [facility] Disclaimer: The information contained in this section may have been updated after the patient was seen, as this information can be updated by other users. Medical History Migraine Inappropriate sinus tachycardia Dizziness Syncope Chest pain Palpitations Hematuria Hypertension Surgical History History of esophagogastroduodenoscopy (EGD) History of endometrial ablation Family History Other Family history of cancer Social History Smoking Status: Current every day smoker second hand exposure: Yes alcohol intake: current substance use type: denies use current occupational status: other Travel in the last 8 weeks?: None Have you lived/traveled outside US in past 30 days?: No Contact w/someone who lives/traveled outside US past 30 days?: No Exposure to someone with infectious disease in past 14 days?: No Do you have a fever (greater than 100.4 F or 38 C)?: No Have you tested positive for COVID-19?: No Exposed to someone with COVID-19 in past 14 days?: No Do you have a sore throat?: No Do you have a cough?: No Do you have any weakness?: No Do you have any diarrhea?: No Are you experiencing any unusual bleeding?: No Do you have any muscle aches/pain?: No Do you have any abdominal pain?: No Are you experiencing loss of taste or smell?: No Other Medical History Have you received the Flu Vaccine for this season: No Have you received the Pneumonia Vaccine: No <Jean Francisco MD - Last Filed: 05/27/25 06:41> ROS Obtained: Yes All systems reviewed & no additional complaints except as documented Physical Exam <Jean Francisco MD - Last Filed: 05/27/25 06:41> General General appearance: alert and in no apparent distress Head Head exam: atraumatic and normocephalic Eye Eye exam: Present normal appearance, PERRL and EOMI ENT ENT exam: Present normal oropharynx and normal external ear exam Neck Neck exam: Present normal inspection and full ROM Chest Chest inspection: Present normal inspection and symmetric chest wall rise; Absent tenderness Respiratory Respiratory exam: Present normal lung sounds bilaterally; Absent respiratory distress Cardiovascular Cardiovascular exam: Present regular rate and normal rhythm Abdominal Exam Abdominal exam: Present soft; Absent distention, tenderness or guarding Extremities Exam Extremities exam: Present normal inspection; Absent edema or joint swelling Back Exam Back exam: Present normal inspection; Absent tenderness Neurological Exam Neurological exam: Present alert and oriented X3; Absent motor sensory deficit Psychiatric Psychiatric exam: Present normal affect and normal mood Skin Skin exam: Present warm, dry and normal color Lymphatic Lymphatic Findings: no adenopathy Medical Decision Making <Jean Francisco MD - Last Filed: 05/27/25 06:41> Medical Records Medical records reviewed: Yes I reviewed the patient's medical records. Screening: Per USPSTF and CDC recommendations, given the prevalence of disease in our region, it is our hospital?s policy to screen for HIV and viral Hepatitis for all patients aged 18 and over and those with ongoing risk factors. Aquilino Inquiry Pt receiving controlled substance: No Aquilino was queried for this patient: No Vital Signs: 05/27/25 06:22 05/27/25 06:24 05/27/25 06:34 Temperature 97.9 F 97.9 F Temperature Source Oral Pulse Rate 73 73 Pulse Rate [Right] 73 Respiratory Rate 16 16 Blood Pressure 109/68 L 109/68 L Blood Pressure [Right Arm] 109/68 L Blood Pressure Mean [Right Arm] 81 02 Sat by Pulse Oximetry 97 97 97 Oxygen Delivery Method Room Air Room Air 05/27/25 06:34 05/27/25 07:00 05/27/25 07:30 Temperature Temperature Source Pulse Rate 65 66 58 L Pulse Rate [Right] Respiratory Rate Blood Pressure 109/66 L 100/68 L 97/59 L Blood Pressure [Right Arm] Blood Pressure Mean [Right Arm] 02 Sat by Pulse Oximetry 99 97 97 Oxygen Delivery Method Room Air 05/27/25 08:00 Temperature Temperature Source Pulse Rate 71 Pulse Rate [Right] Respiratory Rate Blood Pressure 104/53 L Blood Pressure [Right Arm] Blood Pressure Mean [Right Arm] 02 Sat by Pulse Oximetry 95 Oxygen Delivery Method Lab Data Lab results reviewed: Yes I reviewed the patient's lab results. Lab Results 05/27/25 06:30: Serum HCG, Qual Negative Orders (Tests/Meds): ED MEDICATIONS Discontinued Medications Generic Name Dose Route Start Last Admin Trade Name Bruceq PRN Reason Stop Dose Admin Acetaminophen 1,000 mg 05/27/25 06:26 05/27/25 06:52 Acetaminophen 1,000mg/100ml Vial IV 05/27/25 06:27 1,000 mg ONCE ONE Administration Dexamethasone Sodium Phosphate 8 mg 05/27/25 06:26 05/27/25 06:50 Dexamethasone 4mg/Ml 1ml Vial IV 05/27/25 06:27 8 mg ONCE ONE Administration Diphenhydramine HCl 25 mg 05/27/25 06:26 05/27/25 06:49 Diphenhydramine 50mg/Ml Vial IV 05/27/25 06:27 25 mg ONCE ONE Administration Sodium Chloride 1,000 mls @ 999 mls/hr 05/27/25 06:30 05/27/25 06:52 Sod Chlor 0.9% 1000ml Bag IV 05/27/25 07:30 999 mls/hr .Q1H1M BECKY Administration Magnesium Sulfate 2 gm in 50 mls @ 150 mls/hr 05/27/25 06:26 05/27/25 07:53 Magnesium Sulfate 2gm/50ml Premix IV 05/27/25 06:45 150 mls/hr ONCE ONE Administration Prochlorperazine Edisylate 10 mg 05/27/25 06:26 05/27/25 06:51 Prochlorperazine 10mg/2ml Vial IV 05/27/25 06:27 10 mg ONCE ONE Administration ORDERS Category Date Time Status Serum [HCG Qualitative, Serum] Stat Lab 05/27/25 06:30 Completed Medical Decision Narrative: 24-year-old female with history of migraine, fibro myalgia, POTS presents for migraine headache x 3 days not responsive to home meds.. History was obtained via interactive discussion with patient. On arrival, patient is [afebrile, hemodynamically stable, satting appropriately, alert, oriented x4, GCS 15], moving all extremities spontaneously. Full physical exam performed and significant for no significant physical exam abnormalities. Differential includes but is not limited to migraine headache, tension headache, cluster headache, intracranial pathology.. Patient was given migraine cocktail including fluids, Compazine Benadryl mag Tylenol Decadron. test ordered. We will observe patient to assess efficacy of migraine cocktail. At this time care handoff to oncoming physician. <Rex Currie MD - Last Filed: 05/27/25 08:17> Vital Signs: 05/27/25 06:22 05/27/25 06:24 05/27/25 06:34 Temperature 97.9 F 97.9 F Temperature Source Oral Pulse Rate 73 73 Pulse Rate [Right] 73 Respiratory Rate 16 16 Blood Pressure 109/68 L 109/68 L Blood Pressure [Right Arm] 109/68 L Blood Pressure Mean [Right Arm] 81 02 Sat by Pulse Oximetry 97 97 97 Oxygen Delivery Method Room Air Room Air 05/27/25 06:34 05/27/25 07:00 05/27/25 07:30 Temperature Temperature Source Pulse Rate 65 66 58 L Pulse Rate [Right] Respiratory Rate Blood Pressure 109/66 L 100/68 L 97/59 L Blood Pressure [Right Arm] Blood Pressure Mean [Right Arm] 02 Sat by Pulse Oximetry 99 97 97 Oxygen Delivery Method Room Air 05/27/25 08:00 Temperature Temperature Source Pulse Rate 71 Pulse Rate [Right] Respiratory Rate Blood Pressure 104/53 L Blood Pressure [Right Arm] Blood Pressure Mean [Right Arm] 02 Sat by Pulse Oximetry 95 Oxygen Delivery Method Lab Data Lab Results 05/27/25 06:30: Serum HCG, Qual Negative Orders (Tests/Meds): ED MEDICATIONS Discontinued Medications Generic Name Dose Route Start Last Admin Trade Name Brisa PRN Reason Stop Dose Admin Acetaminophen 1,000 mg 05/27/25 06:26 05/27/25 06:52 Acetaminophen 1,000mg/100ml Vial IV 05/27/25 06:27 1,000 mg ONCE ONE Administration Dexamethasone Sodium Phosphate 8 mg 05/27/25 06:26 05/27/25 06:50 Dexamethasone 4mg/Ml 1ml Vial IV 05/27/25 06:27 8 mg ONCE ONE Administration Diphenhydramine HCl 25 mg 05/27/25 06:26 05/27/25 06:49 Diphenhydramine 50mg/Ml Vial IV 05/27/25 06:27 25 mg ONCE ONE Administration Sodium Chloride 1,000 mls @ 999 mls/hr 05/27/25 06:30 05/27/25 06:52 Sod Chlor 0.9% 1000ml Bag IV 05/27/25 07:30 999 mls/hr .Q1H1M BECKY Administration Magnesium Sulfate 2 gm in 50 mls @ 150 mls/hr 05/27/25 06:26 05/27/25 07:53 Magnesium Sulfate 2gm/50ml Premix IV 05/27/25 06:45 150 mls/hr ONCE ONE Administration Prochlorperazine Edisylate 10 mg 05/27/25 06:26 05/27/25 06:51 Prochlorperazine 10mg/2ml Vial IV 05/27/25 06:27 10 mg ONCE ONE Administration ORDERS Category Date Time Status Serum [HCG Qualitative, Serum] Stat Lab 05/27/25 06:30 Completed Medical Decision Narrative: 24-year-old female with history of migraine, fibro myalgia, POTS presents for migraine headache x 3 days not responsive to home meds.. History was obtained via interactive discussion with patient. On arrival, patient is [afebrile, hemodynamically stable, satting appropriately, alert, oriented x4, GCS 15], moving all extremities spontaneously. Full physical exam performed and significant for no significant physical exam abnormalities. Differential includes but is not limited to migraine headache, tension headache, cluster headache, intracranial pathology.. Patient was given migraine cocktail including fluids, Compazine Benadryl mag Tylenol Decadron. test ordered. We will observe patient to assess efficacy of migraine cocktail. At this time care handoff to oncoming physician. I, Rex Currie MD, ACCEPTED care of this patient at 0700. Briefly, 24-year-old with history of migraines coming in today with signs and symptoms consistent with migraine. Treated with multimodal pain control. Pending reassessment. On my reassessment, patient is ambulatory about the emergency department and tolerating oral intake. She reports resolution in her symptoms. Has nausea and headache medicines at home already. Has good follow-up with PCP. strict return precautions are discussed all questions answered amenable to plan and discharge Procedures <Jean Francisco MD - Last Filed: 05/27/25 06:41> Risk/Benefits of Procedure(s) Were Explained: Yes Critical Care <Jean Francisco MD - Last Filed: 05/27/25 06:41> Critical Care Time Critical Care Time: No
--- OUTSIDE RECORDS SUMMARY | 2025-05-27 06:24 | XMS_ITS | Encounter Summary ---
Author Organization [employer] ([place], [place], [place], [place], [place]) Address [address] [place] [address] Care Team Providers Care Maintenance Worker House Trailer Name Role Phone JasonNell Valarie FITZPATRICK Primary Care Provider [phone]- [phone] Encounter Details Date Type Department Care Team (Late st Contact Info) Description 05/21/2021 Transcribed Document [facility] [place] Family Medicine [facility] [place] [address] ProviderTylor MD [address] [place] [address] Social History Tobacco Use Types [...] Martinez MD - 05/21/2021 10:41 PM CDT [facility] [place] [address] SRIRAMVANE MARTÍNEZ NELL :2000 Visit Time:05/21/2021 Your Visit Summary Your [...] When Within 2 to 3 days Where: [facility] [address] [facility] [place] [address] [place] [address] Business (1) Follow Up with NELL GOMEZ When Within 2 to 3 days Where: [place] [place] [address] [facility] (1) Allergies No Known Allergies Immunizations This Visit No Immunizations Found Medications What How Much When Instructions Next Dose acetaminophen-hydrocodone (Lomax 5 mg-325 mg oral tablet) 1 Tablet(s) Oral Every 4 Hours as needed for for pain Duration: 3 Day(s) Pickup at [facility] ondansetron (Zofran ODT 4 mg oral tablet, disintegrating) 1 Tablet(s) Oral Three Times A Day Duration: 3 Day(s) Pickup at [facility] Pharmacy Information [facility]: [address] [place] [address] [phone] The home medications listed are only as [...] range between ( 0.0 and 7.0 ) [place] #: 0.59 K/uL -- Normal range between ( 0.16 and 1.00 ) Eos #: 0.31 x10(3)/uL -- Normal range between ( 0.00 and 0.80 ) [place] %: 6.7 % -- Normal range between [...] ) Urine Bilirubin Dipstick: Negative Urine Specific [place]: 1.011 -- Normal range between ( 1.005 [...] these instructions at home: Medicines ??? Take [id number] and prescription medicines only as told by [...] your condition for any changes. ??? Take kkcg-zay-ncoquvb and prescription medicines only as told by [...] Reviewed: 11/15/2019 Elsevier Patient Education ?? 2020 [employer] Emergency Awareness and Preventative Care STROKE [...] Assistance with quitting is available by contacting 1-454-YJEF-NOW. This is a free resource providing counseling, support, and referral. Or you may contact your personal physician. [place] Suicide Prevention Lifeline: The National Suicide Prevention [...] emergency, radiology, or pathology physicians. Patient Name:VANE MCGRAW I have received this information and was given the opportunity to ask questions. Patient/Slasher Hand Name: Patient/Slasher Hand Signature: Relationship to Patient: Clinician/Hospital Slasher Hand Signature: Please Provide a Telephone Number Where You Can Be Reached: Is it Permissible To Leave a Message? Date: documented in this encounter Plan of Treatment Not on file documented as of this encounter Visit Diagnoses Not on filedocumented in this encounter Care Teams Maintenance Worker House Trailer Relationship Specialty Start Date End Date Nell Gomez, UPPER TRIMMER [address] [place] [address] PCP - General Family Medicine 06/11/23 documented as of this encounter
--- OUTSIDE RECORDS SUMMARY | 2025-05-27 06:24 | XMS_ITS | Clinical Summary ---
Author Organization [employer] ([place], [place], [place], [place], [place]) Address [address] [place] [address] Care Team Providers Care Innovation Analyst Name Role Phone Jason Nell Sheppard APRN Primary Care Provider [phone]- [phone] Allergies No known active allergies Medications omeprazole [...] stress disorder) 06/10/2023 Syncope 06/10/2023 Tachycardia 06/10/2023 Family History Medical History Relation Name Comments Hyperlipidemia Father Hypertension Father Colon polyps Maternal Grandmother Arthritis Mother Thyroid disease Mother Colon polyps Paternal Grandmother Relation Name Status Comments Father Maternal Grandmother Mother Paternal Grandmother Social History Tobacco Use Types [...] Date Darnell rded Speak language other than Zambian at home Not on file 08/08/2023 Want [...] 12/10/2023 8:39 AM EDT Plan of Treatment Health Maintenance Due Date Last Done Comments HIV Screening 2016 Meningococcal B Vaccine (1 of 2 - Standard) 2017 Hepatitis C Screening 2019 DTAP/TDAP/TD VACCINES (1 - Tdap) 2020 Pneumococcal Vaccine: 0-49 Years (1 of 2 - PCV) 2020 Lipid Panel 2021 Tobacco Cessation Counseling and Screening (12+) 12/0912/10/2023 COVID-19 VACCINE (2 - 2024- season) 2025 Influenza Vaccine (#1) 2025 Pap Smear 12/18/2025 12/18/2022 Insurance BLUE CROSS/BLUE SHIELD Care Teams Innovation Analyst Relationship Specialty Start Date End Date Nell Gomez, CLOTHES DRIER REPAIRER [address] [place] [address] PCP - General Family Medicine 06/11/23
--- OUTSIDE RECORDS SUMMARY | 2025-05-27 06:24 | XMS_ITS | Encounter Summary ---
Author Organization [employer] ([place], [place], [place], [place], [place]) Address [address] [place] [address] Care Team Providers Care Presser All Around Name Role Phone Nell Gomez Valarie FITZPATRICK Primary Care Provider [phone]- [phone] Encounter Details Date Type Department Care Team (Late st Contact Info) Description 05/21/2021 Transcribed Document [facility] Family Medicine [facility] [place] [address] ProviderTylor MD [address] [place] [address] Social History Tobacco Use Types [...] EDT Height Source Stated Height Entry Format [place] Height/Length, KITTITIAN (ft) 5 ft Height/Length KITTITIAN 8 Inch CLINICALHEIGHT 172.72 cm Jones Body Weight 63.45 kg Weight Source, ED Critical estimated dosing weight Weight Entry Format [place] Weight [place] lb 120 lb CLINICALWEIGHT 54.55 kg Body [...] % 34.0 % Lymph # 3.00 x10(3)/uL [place] % 6.7 % [place] # 0.59 K/uL Eos % 3.5 % Eos # 0.31 x10(3)/uL Baso % 0.8 % Baso # 0.07 x10(3)/uL Slide Review No IG# 0.04 x10(3)/uL IG% 0.50 % 05/21/2021 16:48 EDT Urine Type. U CleanCatch Urine Color Yellow Urine Appearance Cloudy Urine Specific [place] 1.011 Urine pH Dipstick 6.5 Urine Leukocyte [...] Radiology results: Radiology Results (Last 48 hours) [id number] -- 05/21/2021 15:21 CTA Abdomen Pelvis (05/21/2021 [...] 05/21/2021 19:00:00, SHANTANU CHAVEZ DO. Prescriptions: Prescription [facility]: [facility] ODT 4 mg oral tablet, disintegrating (Prescribe): 1 Tab, Oral, TID, for 3 Day(s), 9 Tab, 0 Refill(s) [place] 5 mg-325 mg oral tablet (Prescribe): 1 Tab, Oral, Q4H, for 3 Day(s), PRN: for pain, 5 Tab, 0 Refill(s) . Patient was given the following educational materials: Abdominal Pain, Adult. Follow up with: NELL GOMEZ Within 2 to 3 days; ERI MARQUEZ Within 2 to 3 days, ERI MARQUEZ Within 2 to 3 days; NELL GOMEZ Within 2 to 3 days. Counseled: [...] artery syndrome in an outlying ED in [place] at [facility] and was told [...] on filedocumented in this encounter Care Teams Presser All Around Relationship Specialty Start Date End Date Nell Gomez, BARBER STYLIST [address] [place] [address] PCP - General Family Medicine 06/11/23 documented as of this encounter
--- OUTSIDE RECORDS SUMMARY | 2025-05-27 06:24 | XMS_ITS | Encounter Summary ---
Author Organization [employer] ([place], [place], [place], [place], [place]) Address [address] [place] [address] Care Team Providers Care Hospital Plan Administrator Name Role Phone JasonNell Valarie FITZPATRICK Primary Care Provider [phone]- [phone] Encounter Details Date Type Department Care Team (Late st Contact Info) Description 05/21/2021 Transcribed Document [facility] [place] Family Medicine [facility] [place] [address] ProviderTylor MD [address] [place] [address] Social History Tobacco Use Types [...] on filedocumented in this encounter Care Teams Hospital Plan Administrator Relationship Specialty Start Date End Date Nell Gomez, CHEMICAL INSTRUMENTATION OFFICER [address] [place] [address] PCP - General Family Medicine 06/11/23 documented as of this encounter
--- OUTSIDE RECORDS SUMMARY | 2025-05-27 06:24 | XMS_ITS | Encounter Summary ---
Author Organization [employer] ([place], [place], [place], [place], [place]) Address [address] [place] [address] Care Team Providers Care Baker Doughnut Name Role Phone JasonNell Valarie FITZPATRICK Primary Care Provider [phone]- [phone] Encounter Details Date Type Department Care Team (Late st Contact Info) Description 05/21/2021 Transcribed Document [facility] [place] [address] [place] [address] ProviderTylor MD [address] [place] [address] Social History Tobacco Use Types [...] Note - Tylor Martinez MD - 05/21/2021 3:21 PM CDT Broset Violence Assessment Entered On: 05/21/2021 18:03 EDT Performed On: 05/21/2021 18:01 EDT by Anna Sen RN Broset Violence Assessment Broset Violence Checklist of Symptoms : None Broset Violence Symptoms Subtotal : 0 Broset Violence Symptoms Indicator : Low risk (0) Anna Sen RN - 05/21/2021 18:01 EDT Electronically signed by Trinidad Arellano Conversion Nursing Education Consultant Cerner at 11/05/2022 8:21 PM CDT documented in this encounter Plan of Treatment Not on file documented as of this encounter Visit Diagnoses Not on filedocumented in this encounter Care Teams Baker Doughnut Relationship Specialty Start Date End Date Nell Gomez, RN INTAKE [address] [place] [address] PCP - General Family Medicine 06/11/23 documented as of this encounter
--- OUTSIDE RECORDS SUMMARY | 2025-05-27 06:24 | XMS_ITS | Encounter Summary ---
Author Organization [employer] ([place], [place], [place], [place], [place]) Address [address] [place] [address] Care Team Providers Care Forming Machine Upkeep Mechanic Helper Name Role Phone Nell Gomez AMARI Primary Care Provider +1- [phone] Encounter Details Date Type Department Care Team (Late st Contact Info) Description 05/21/2021 Transcribed Document [facility] Family Medicine [facility] [place] [address] ProviderTylor MD [address] [place] [address] Social History Tobacco Use Types [...] Martinez MD - 05/21/2021 3:21 PM CDT ED Triage [...] : 3 - Urgent Tracking Group : [facility] ED FRENCH LOPEZ RN - 05/21/2021 [...] PNED ; Probability: 0 ; Diagnosis Code: [id number] ED Height and Weight Height Source : Stated Height Entry Format : [place] Height, Feet : 5 ft(Converted to: 152 cm, 60 Inch) Height, Inches : 8 Inch(Converted to: 0 ft 8 Inch, 20.32 cm) Clinical Height : 172.72 cm Weight Source, ED : Critical estimated dosing weight Weight Entry Format : [place] Weight, Pounds : 120 lb Clinical Dosing Weight : 54.55 kg Body Surface Area (BSA) : 1.65 m2 Body Mass Index : 18.3 kg/m2 (LOW) [place] Body Weight (IBW) : 63.45 kg FRENCH LOPEZ RN - 05/21/2021 15:28 EDT documented in this encounter Plan of Treatment Not on file documented as of this encounter Visit Diagnoses Not on filedocumented in this encounter Care Teams Forming Machine Upkeep Mechanic Helper Relationship Specialty Start Date End Date Nell Gomez, DRILL PRESS OPERATOR HELPER [address] [place] [address] PCP - General Family Medicine 06/11/23 documented as of this encounter
--- OUTSIDE RECORDS SUMMARY | 2025-05-27 06:24 | XMS_ITS | Clinical Summary ---
Author Organization Healthcare Address [address] [place] [address] Care Team Providers Care Solar Sales Ambassador Name Role Phone Nell Gomez AMARI Primary Care Provider Allergies No known active allergies Medications fluticasone [...] Bulge of lumbar disc without myelopathy 10/12/19 Back pain, chronic 10/04/2020 Radiculopathy 10/04/2020 Menorrhagia with irregular cycle 09/21/2020 Depression with anxiety 09/21/2020 Resolved Problems Problem Noted Date Diagnosed Date Resolved Date Dysmenorrhea 09/21/2020 04/10/2025 Encounters Date Type Department Care Team Description 05/05/2025 Community [facility] [address] [place] [address] Flavia Workman MD Intractable migraine without aura and without status migrainosus (Primary Dx) from Last 3 Months Family History Medical History Relation Name Comments [...] 12/18/2022 8:43 AM EDT Plan of Treatment Upcoming Encounters Date Type Department Care Team (Late st Contact Info) Description 06/06/2025 10:30 AM EST Consult [facility] Pediatric Neurology [address] [place] [phone] Madelyn Elias, PA [address] [facility] [address] [place] [address] Health Maintenance Due Date Last Done Comments [facility]-Depression Screening 2001 [facility]-HIV Screening 2001 [facility]-Hepatitis C Screening 2001 [facility]-Infant/Child/Adol SDOH Screenings 2001 [facility]-Varicella Vaccines (1 of 2 - 13+ 2-dose series) 2014 HPV Vaccines (1 - 3-dose series) 2016 [facility]- SDOH Screenings 2019 [facility]-Adult SDOH Screenings 2019 [facility]-DTaP,Tdap,and Td Vaccine s (1 - Tdap) 2020 [facility]-Hepatitis B Vaccines (1 of 3 - 19+ 3-dose series) 2020 [facility]-Pneumococcal Vaccine: Pediatrics (0 to 5 Years) and At-Risk Patients (6 to 49 Years) (1 of 2 - PCV) 2020 [id number] Vaccine (2 - 20 25-26 season) 2025 12/14/2020 [facility]-Influenza Vaccine (#1) 2025 [facility]-Pap Smear [...] 12:06 PM EDT) Case Report Cytology Case: [id number] Authorizing Provider: Hank Gutierrez MD Collected: 12/18/2022 1206 Ordering Location: Obstetrics & Gynecology Received: 12/19/2022 1114 First Screen: Akanksha Lu Pathologist: Daquan Solares MD Specimen: ThinPrep Pap Test, Liquid-Based Cervical/Vaginal 12/26/2022 2:06 PM EDT [facility] Interpretation LOW GRADE SQUAMOUS INTRAEPITHELIAL LESION (LSIL)(A) 12/26/2022 2:06 PM EDT [facility] at 1406 EDT Specimen Adequacy Satisfactory for evaluation; endocervical/hood sformation zone component present. Slide imaged by the ThinPrep Imaging system and selected 22 wynn reviewed then full manual screening. 12/26/2022 2:06 PM EDT [facility] Cervical cytology is a screening test [...] results is suggested (please call Microbiology at [phone] for results). 12/26/2022 2:06 PM EDT [facility] Menstrual Status Unknown 12/27/19 2:06 PM EDT [facility] Contraceptive History Not Applicable 12/26/2022 2:06 PM EDT [facility] Screening Type Routine Screen 2022 2:06 PM EDT [facility] High Risk? No 12/26/2022 2:06 PM EDT [facility] HPV Testing Requested? Request HPV testing if ASCUS or LSIL. 12/26/2022 2:06 PM EDT [facility] Previous Cancer History No 12/26/2022 2:06 PM EDT [facility] Clinical Information Z01.419 - Encounter for annual routine gynecological examination [ICD-10-CM] 12/26/2022 2:06 PM EDT [facility] Swab Vaginal and cervical cytologic material / Unknown Non-blood Collection / Unknown 12/18/2022 12:06 PM EDT 12/19/2022 11:14 AM EDT us Hank Gutierrez MD LAB CYTOLOGY ORDERABLES Final [facility] [address] [place] [address] from Last 3 Months or Most Recently Relevant to Health Maintenance Insurance [employer]THEM Care Teams Solar Sales Ambassador Relationship Specialty Start Date End Date Nell Gomez APRN [address] [place] [address] PCP - General 05/11/25
--- OUTSIDE RECORDS SUMMARY | 2025-05-27 06:24 | XMS_ITS | Encounter Summary ---
Author Organization [employer] ([place], [place], [place], [place], [place]) Address [address] [place] [address] Care Team Providers Care Internet Designer Name Role Phone Keeley Gomez APRN Primary Care Provider +1- [phone] Encounter Details Date Type Department Care Team (Late st Contact Info) Description 05/21/2021 Transcribed Document [facility] Family Medicine [address] [place] [address] ProviderTylor MD [address] [place] [address] Social History Tobacco Use Types [...] Note - Tylor Martinez MD - 05/21/2021 10:30 PM CDT [address] [place], [place] [id number] PERSON INFORMATION Name VANE MRAI Age 20 Years 2000 Sex Female Language Martiniquais PCP KEELEY GOMEZ, INSPECTING AND TESTING LEAD HAND-FAM Marital Status Single Med Service Emergency Medicine Acct# Arrival 05/21/2021 15:21:00 Visit Reason Abdominal pain; PT HAS SMA AND SHE STATES ITS TEARING HER STOMACH UP Acuity 3 - Urgent LOS 000 07:09 Depart Date: 00:00 AM Address: [address] [address] Comment: PROVIDER INFORMATION Provider Role Assigned Unassigned DIGNA DICKERSON MD-[facility] ED Physician 05/21/2021 17:55:38 Anna Sen, PLANT PATHOLOGY TEACHER Nurse 05/21/2021 17:57:51 05/21/2021 19:25:17 SHANTANU CHAVEZ DO ED Physician 05/21/2021 19:04:12 RADHA MENJIVAR, PLANT PATHOLOGY TEACHER Nurse 05/21/2021 19:25:18 DIAGNOSIS Abdominal pain [...] Follow up: With: Address: When: ERI MARQUEZ [facility], [address] [facility] [address], [place] [address] Business (1) Within 2 to 3 days With: Address: When: [place] [address] [place] [address] Business (1) Within 2 to 3 days Comment: documented in this encounter Plan of Treatment Not on file documented as of this encounter Visit Diagnoses Not on filedocumented in this encounter Care Teams Internet Designer Relationship Specialty Start Date End Date Keeley Gomez, REGIONAL TANKER TRUCK DRIVER [address] [place] [address] PCP - General Family Medicine 06/11/23 documented as of this encounter
--- OUTSIDE RECORDS SUMMARY | 2025-05-27 06:24 | XMS_ITS | Encounter Summary ---
Author Organization [facility] Address [address] [place] [address] Care Team Providers Care Private Branch Exchange Operator Name Role Phone Luisana Perez APRN Primary Care Provider +1- [phone] Nell Gomez APRN Primary Care Provider [phone] Reason for Referral * Consultation (Routine) - Authorized Specialty Diagnoses / Procedures Referred By Contfernando t Referred To Contact Neurology Diagnoses Intractable migraine without aura and without status migrainosus Flavia Workman MD [address] [place] [address] Phone: tel: fax: Referral ID Status Reason Start Date Expiration Date Visits Requested Visits Authorized [id number] Authorized Specialty Services Required 5 11/04/2026 1 1 Encounter Details Date Type Department Care Team (Late st Contact Info) Description 05/05/2025 Community [facility] [address] [place] [address] Flavia Workman MD [address] [place] [address] Intractable migraine without aura and without status migrainosus (Primary Dx) Social History Tobacco Use Types Packs/Day Years Used Date Smoking Tobacco: Every Day Cigarettes 1 4 Smokeless Tobacco: Never Comments:Smokes 1/2 pack per day Alcohol Use Standard Drinks/Week Comments Yes 1 (1 standard drink = 0.6 oz pure alcohol) Alcoholic Drinks/day: Denies alcohol consumption Comments No Sex and Gender Information Value Date Recorded Sex Assigned at Female 02/01/2021 10:19 AM EDT Legal Sex Female 8:07 PM EDT Gender Identity Female 02/01/2021 10:19 AM EDT Sexual Orientation Pansexual 02/01/2021 10 :19 AM EDT documented as of this encounter Plan of Treatment Upcoming Encounters Date Type Department Care Team (Late st Contact Info) Description 06/06/2025 10:30 AM EST Consult [facility] Pediatric Neurology [address] [place] [address] Madelyn Elias, PA [address] [place] [address] Scheduled Referrals Name Type Priority Associated Diagnoses Orde r Schedule Ambulatory referral to Neurology Outpatient Referral Routine Intractable migraine without aura and without status migrainosus Expected: 05/05/2025 (Approximate), Expires: 11/06/2026 documented as of this encounter Visit Diagnoses Diagnosis Intractable migraine without aura and without status migrainosus- Primary documented in this encounter Care Teams Private Branch Exchange Operator Relationship Specialty Start Date End Date Luisana Perez APRN [address] [place] [address] PCP - General 12/01/20 05/10/25 Nell Gomez APRN [address] [place] [address] PCP - General 05/11/25 documented as of this encounter
--- OUTSIDE RECORDS SUMMARY | 2025-05-27 06:24 | XMS_ITS | Encounter Summary ---
Author Organization [employer] ([place], [place], [place], [place], [place]) Address [address] [place] [address] Care Team Providers Care Budget Counselor Name Role Phone JasonNell Valarie FITZPATRICK Primary Care Provider +1- [phone] Encounter Details Date Type Department Care Team (Late st Contact Info) Description 05/21/2021 Transcribed Document [facility] [place] [address] [place] [address] ProviderTylor MD [address] [place] [address] Social History Tobacco Use Types [...] MD - 05/21/2021 3:21 PM CDT ED Assessment Entered On: 05/21/2021 18:03 EDT Performed On: 05/21/2021 18:01 EDT by Anna Sen RN ED Quick Look Assessment Level of Consciousness : Alert, Awake Orientation : Oriented x 4 Skin Temperature : Warm Skin Description : Dry Anna Sen RN - 05/21/2021 18:01 EDT ED General-Functional Assess Communication Barrier : None Primary Language : Russian Any Spiritual/Cultural Needs or Requests : No [...] Symmetric Gait Assistance Level : Independent, complete Teller Coma Scale Link : Open GCS Anna Sen RN - 05/21/2021 18:01 EDT Teller Coma Gwendolyn Best Motor Response : Obey commands Gwnedolyn Best Verbal Response : Oriented Gwendolyn Eye Opening Response : Spontaneous Teller Coma Score : 15 Anna Sen RN - 05/21/2021 18:01 EDT documented in this encounter Plan of Treatment Not on file documented as of this encounter Visit Diagnoses Not on filedocumented in this encounter Care Teams Budget Counselor Relationship Specialty Start Date End Date Nell Gomez, PIPE CLEANER [address] [place] [address] PCP - General Family Medicine 06/11/23 documented as of this encounter
--- OUTSIDE RECORDS SUMMARY | 2025-05-27 06:24 | XMS_ITS | Encounter Summary ---
Author Organization [employer] ([place], [place], [place], [place], [place]) Address [address] [place] [address] Care Team Providers Care Stained Glass Glazier Helper Name Role Phone JasonNell Valarie FITZPATRICK Primary Care Provider +1- [phone] Encounter Details Date Type Department Care Team (Late st Contact Info) Description 05/21/2021 Transcribed Document [facility] [place] Family [facility] [place] [address] ProviderTylor MD [address] [place] [address] Social History Tobacco Use Types Packs/Day [...] RADHA MENJIVAR RN - 05/21/2021 23:06 EDT documented in this encounter Plan of Treatment Not on file documented as of this encounter Visit Diagnoses Not on filedocumented in this encounter Care Teams Stained Glass Glazier Helper Relationship Specialty Start Date End Date Nell Gomez, RELEASE COORDINATOR [address] [id number] PCP - General Family Medicine 06/11/23 documented as of this encounter
--- OUTSIDE RECORDS SUMMARY | 2025-05-27 06:24 | XMS_ITS | Encounter Summary ---
Author Organization [employer] ([place], [place], [place], [place], [place]) Address [address] [place] [address] Care Team Providers Care Wire Products Inspector Name Role Phone JasonNell Valarie FITZPATRICK Primary Care Provider +1- [phone] Encounter Details Date Type Department Care Team (Late st Contact Info) Description 05/21/2021 Transcribed Document [facility] [place] Family Medicine [facility] [place] [address] ProviderTylor MD [address] [place] [address] Social History Tobacco Use Types [...] Martinez MD - 05/21/2021 3:21 PM CDT [place] Suicide Severity Rating Scale (C-SSRS) Entered On: 05/21/2021 18:03 EDT Performed On: 05/21/2021 18:03 EDT by Anna Sen RN [place] Suicide Severity Rating Scale (C-SSRS) CSSRS Past Month Wish to be : No CSSRS Past Month Suicidal Thoughts : No CSSRS Lifetime Suicide Behavior : No Suicide Severity Rating Score : 0 Suicide Severity Rating : No Additional Care Required at this time Anna Sen RN - 05/21/2021 18:03 EDT Electronically signed by Eileen [facility] Conversion Dental Technologist Cerner at 11/05/2022 8:18 PM CDT documented in this encounter Plan of Treatment Not on file documented as of this encounter Visit Diagnoses Not on filedocumented in this encounter Care Teams Wire Products Inspector Relationship Specialty Start Date End Date Nell Gomez, PUTTY AND CAULKING SUPERVISOR [address] [place] [address] PCP - General Family Medicine 06/11/23 documented as of this encounter
--- OUTSIDE RECORDS SUMMARY | 2025-05-27 06:24 | XMS_ITS | Clinical Summary ---
Author Organization [facility] Address [address] [place] [address] Care Team Providers Care Car Unloader Helper Name Role Phone Nell Gomez Leanne Primary [...] 2020 TDAP/TD VACCINES (1 - Tdap) 2020 INFLUENZA VACCINE 02/18/2025 CHLAMYDIA SCREENING Discontinued 12/18/2022 Insurance Advance Directives * CPR (Attempt to Resuscitate) [...] Of Support Discussed With: Patient Care Teams Car Unloader Helper Relationship Specialty Start Date End Date Nell Gomez [address] [place] [address] PCP - General Nurse Practitioner 02/07/22
--- OUTSIDE RECORDS SUMMARY | 2025-05-27 06:24 | XMS_ITS | Encounter Summary ---
Author Organization [employer] ([place], [place], [place], [place], [place]) Address [address] [place] [address] Care Team Providers Care Software Support Analyst Name Role Phone Nell Gomez COAT CHECKER Primary Care Provider +1- [phone] Encounter Details Date Type Department Care Team (Late st Contact Info) Description 05/21/[address] [facility] Family Medicine [address] [place] [address] ProviderTylor MD [address] [place] [address] Social History Tobacco Use Types [...] 05/21/2021 10:27 PM CDT Electronically signed by [facility] Conversion Senior Trial Attorney Cerner at 11/05/2022 8:20 PM CDT documented in this encounter Plan of Treatment Not on file documented as of this encounter Visit Diagnoses Not on filedocumented in this encounter Care Teams Software Support Analyst Relationship Specialty Start Date End Date Nell Gomez, COAT CHECKER [address] [place] [address] PCP - General Family Medicine 06/11/23 documented as of this encounter
--- OUTSIDE RECORDS SUMMARY | 2025-05-27 06:24 | XMS_ITS | Encounter Summary ---
Author Organization [employer] ([place], [place], [place], [place], [place]) Address [address] [place] [address] Care Team Providers Care Graphic Design Manager Name Role Phone JasonNell Valarie FITZPATRICK Primary Care Provider +1- [phone] Encounter Details Date Type Department Care Team (Late st Contact Info) Description 05/21/2021 Transcribed Document [facility] Family Medicine [facility] [place] [address] ProviderTylor MD [address] [place] [address] Social History Tobacco Use Types [...] Note - Tylor Martinez MD - 05/21/2021 6:10 PM CDT Pain Assessment [...] on filedocumented in this encounter Care Teams Graphic Design Manager Relationship Specialty Start Date End Date Nell Gomez, TREE DRILLER [address] [phone] PCP - General Family Medicine 06/11/23 documented as of this encounter
--- OUTSIDE RECORDS SUMMARY | 2025-05-27 06:24 | XMS_ITS | Referral Summary ---
Author Organization [employer] ([place], [place], [place], [place], [place]) Address [address] [place] [address] Care Team Providers Care Agile Tester Name Role Phone Jason Nell Sheppard APRN Primary Care Provider +1- [phone] Allergies No known active allergies Medications omeprazole [...] Date Darnell rded Speak language other than Nigerien at home Not on file 08/08/2023 Want [...] file Insurance BLUE CROSS/BLUE SHIELD Care Teams Agile Tester Relationship Specialty Start Date End Date Nell Gomez, NEWSPAPER LIBRARY MANAGER [address] [place] [address] PCP - General Family Medicine 06/11/23
[2025-05-27] MEDS: DEXAMETHASONE 4MG/ML 1ML VIAL 8 MG IV (06:50)
[2025-05-27] MEDS: PROCHLORPERAZINE 10MG/2ML VIAL 10 MG IV (06:51)
[2025-05-27] MEDS: 0.9 % SODIUM CHLORIDE 1000ML 1,000 ML 999 ML IV (06:52)
[2025-05-27] MEDS: ACETAMINOPHEN 1,000MG/100ML VIAL 1000 MG IV (06:52)
[2025-05-27 07:22] LABS: HCG Qualitative, Serum Negative (Negative)
[2025-05-27] MEDS: MAGNESIUM SULFATE IN WATER 2 GM/50 ML PIGGYBACK IV (07:53)
== END 2025-05-27 08:25 | disposition home or self-care (01) ==
PROVIDERS: Emergency Provider Emergency Medicine; PCP Nurse Practitioner
DX: G43.909 Migraine, unspecified, not intractable, without status migrainosus (principal); R11.2 Nausea with vomiting, unspecified; F17.210 Nicotine dependence, cigarettes, uncomplicated
CPT/HCPCS: 84703; 96365; 96375; 99284; 99285; J0131; J0780; J1100; J1200; J3475; J7030